=== PATIENT | male | born 1975 | race Caucasian/White ===

== ENCOUNTER 2017-07-30 20:53 | Emergency (ER) | payer MEDICAID, SELFPAY ==
[2017-07-30 20:54] VITALS: BP 126/85; PULSE 85; RESP 16; TEMP 36.9; O2SAT 97; BMI 27.3
[2017-07-30 21:14] VITALS: BP 131/88; PULSE 76; RESP 15; O2SAT 97
--- NOTE | 2017-07-30 21:31 | EKG12_ITS ---
Test Reason : POST OP CP Blood Pressure : / mmHG Vent. Rate : 080 BPM Atrial Rate : 080 BPM P-R Int : 158 ms QRS Dur : 150 ms QT Int : 432 ms P-R-T Axes : 047 -01 134 degrees QTc Int : 498 ms Normal sinus rhythm Left bundle branch block Abnormal ECG Confirmed by BRODERICK GONZALES, SHANON ([id number]), medical transcription editor BETTE BRYANT ([id number]) on 08/01/2017 2:06:41 PM Referred By: GISELLA Confirmed By:SHANON VILLAFANA MD
[2017-07-30 21:43] LABS: Absolute Lymphocyte Count 2.76 X10^3/ul (0.83-4.51); Absolute Neutrophil Count 3.3 X10^3/uL (2.0-7.7); Basophil# 0.05 X10^3/uL; Basophil% 0.7 % (0-1); Eosinophil# 0.43 X10^3/uL; Hematocrit 32.7 % (40-54); Hemoglobin 10.9 g/dl (13.0-16.5); Lymphocyte # 2.76 X10^3/ul (4.0); Lymphocyte % 38.7 % (19-41); Mean Corp Hgb Conc 33.3 g/gl (32-36); Mean Corpuscular Hgb 29.8 pg (27.0-32.0); Mean Corpuscular Volume 89.3 fL (80-94); Mean Platelet Vol. 9.5 fl (6.2-12.0); Monocyte# 0.58 X10^3/uL; Monocyte% 8.1 % (0-10); Neutrophil % 46.4 % (47-70); Platelet Count 571 K/mm3 (150-450); RBC Distribution Width SD 45.7 fl (35.1-43.9); Red Blood Count 3.66 M/mm3 (4.6-6.2); White Blood Count 7.1 K/mm3 (4.4-11.0)
[2017-07-30 21:44] LABS: POSITIVE COUNT NO; POSITIVE DIFFERENTIAL NO; POSITIVE MORPHOLOGY NO
--- NOTE | 2017-07-30 21:45 | RAD_ITS ---
STUDY: X-RAY CHEST REASON FOR EXAM: Male, 41 years old. Left chest pain and dyspnea. TECHNIQUE: PA and lateral views of the chest. COMPARISON: 12/10/2016. FINDINGS: There is mild stranding in the left lower lobe. There is small left pleural effusion new since previous examination. Sternal cerclage wires are present from a prior sternotomy new since the previous exam. Normal mediastinum and alphonse. Normal visualized pulmonary arteries. Normal visualized aortic arch and descending thoracic aorta. The bony structures are unchanged. There is no demonstrated abnormality of the visualized soft tissue structures of the upper abdomen. RAD/Chest PA and Lateral IMPRESSION: Mild left basilar infiltrate/atelectasis and small left pleural effusion. Status post median sternotomy. Electronically Signed: Baldomero Velez MD at 22:08 EST Tel , Service support ,
[2017-07-30 21:48] LABS: Anion Gap 10 (5-15); BUN 15 mg/dL (7-18); BUN/Creat Ratio 18.8 RATIO (10-20); Calcium,Total 8.5 mg/dL (8.5-10.1); Chloride 105 mmol/L (98-107); EST Glomerular Filtration Rate 113 mL/min (>60); Est Glom Filt Rate - Afr Amer 137 mL/min (>60); Estimated Creatinine Clearance 85.94 ml/min; Glucose 152 mg/dL (74-106); Potassium 3.4 mmol/L (3.5-5.1); Sodium Level 138 mmol/L (136-145)
[2017-07-30 21:56] LABS: D-Dimer Quantitative (DVT/PE) 3.64 FEU/ug/m (0.27-0.49)
--- NOTE | 2017-07-30 21:59 | ED.RN ---
notified MD of d-dimer 3.64
[2017-07-30 22:00] VITALS: BP 122/85; PULSE 76; O2SAT 97
--- NOTE | 2017-07-30 22:40 | CT_ITS ---
STUDY: CTA CHEST REASON FOR EXAM: Male, 41 years old. Hypoxia. RADIATION DOSAGE (If Supplied By Facility): CTDIvol = ( 10.82 ) mGy, DLP = ( 428.30 ) mGycm TECHNIQUE: The examination was performed with the intravenous administration of 75 ml of Isovue 370 contrast material. Post-processing of the angiographic images was performed, with multiplanar reformation. Individualized dose optimization techniques were used for this CT. COMPARISON: None. FINDINGS: Normal enhancement of the main pulmonary artery and right and left pulmonary arteries. There is limited enhancement of the bilateral peripheral pulmonary arteries. There are questionable filling defects left lower lobe branches probably due to artifacts. They are not definitely confirmed on the sagittal or coronal images. Normal thoracic aorta and visualized great vessels. There is no demonstrated aortic dissection. The heart is mildly enlarged. There is no evidence of pericardial effusion. There is a soft tissue density in the anterior mediastinum in the lower chest likely representing postoperative changes. Normal hilar regions. Normal visualized trachea and bronchi. The lungs are well expanded. Is an infiltrate/atelectasis in the left lower lobe. There is moderate bilateral pleural effusions larger on the left side. There are mediastinal wires. Normal osseous structures. Normal visualized upper abdomen. CT/CTA Chest W/WO Contrast IMPRESSION: No evidence of central pulmonary embolism. Suboptimal evaluation of the peripheral branches due to artifacts. Left lower lobe infiltrate/atelectasis. Moderate bilateral pleural effusions larger on the left side. Anterior mediastinal density likely representing postoperative changes. Status post mediastinotomy. Electronically Signed: Baldomero Velez MD at 0:05 EST Tel , Service support ,
[2017-07-30 23:00] VITALS: BP 118/76; PULSE 78; RESP 16; O2SAT 98
[2017-07-31] VITALS: BP 120/79; PULSE 75; RESP 18; O2SAT 98
--- NOTE | 2017-07-31 00:51 | ED.VISSUMM ---
- ER Visit Summary Date of Service: 07/31/17 Chief Complaint: Left-sided chest pain that is sharp in nature History of Present Illness: The patient is a 41 M who has history of hypertrophic cardiopathy status post septal myomectomy on July 18 presents because of sharp left-sided chest pain. He also complains of medial left arm pain where he had vascular work. He denies any leg pain, swelling or discoloration. He denies any fever, chills or night sweats. Denies weight gain or weight loss. He denies any visual, ocular or auditory symptoms. He does report her shortness of breath. He denies dyspnea on exertion, orthopnea or PND. He denies any abdominal pain, nausea, vomiting diarrhea. He denies dysuria, frequency, urgency hematuria. He denies myalgias arthralgias or neck pain. He denies any rash or lesions. He denies headache, weakness or paresthesia. He is on no anticoagulant and gives no history of bruising easily or problems with bleeding. Physical Examination: Vital signs are marked for an elevated blood pressure 131/88. Head is atraumatic normocephalic. Pupils are equal round reactive. Extraocular muscles are intact. TMs are pearly white with landmarks noted. Nares patent with no drainage. Posterior pharynx without erythema or exudate. Uvula is midline. There is no dysphonia or dysphasia. Trachea is midline. There is no stridor with auscultation of the neck. He has a well-healed median sternotomy scar. There are bruises noted over the anterior left chest and medial left arm. Heart is regular without murmur, gallop or rub. Lungs are clear to auscultation. Abdomen soft nontender. Insert lower extremity DVT Test Results: Chest x-ray was obtained and reveals no acute pathology. EKG reveals a sinus rhythm rate of 80 and normal CBC is remarkable mild anemia with an H&H of 10.9 and 32.7. BMP is marked for glucose of 152. D-dimer is 3.64. CTA of the chest reveals no evidence of pulmonary mass or dissection. Bilateral pleural effusions left greater than right and atelectasis. Emergency Department Course and Treatment: I await his chest pain since he is postop a EKG, chest x-ray and appropriate blood work was obtained. Differential includes pneumonia, pulmonary embolus, postoperative chest pain. Treatment Plan: Since there is no evidence of PE or pneumonia will treat with pain medicine. He informed me that he has oxycodone tablets at home. Disposition: Charge to home with home-going medicine since pharmacies are closed at this hour. Impression: 1. Sharp left chest pain status post cardiac surgery 2. Septal myomectomy 3. History of hypertension 4. History of elevated triglycerides 5. History of glycogen storage disease This note was generated with [employer] dictation software. It may contain incorrect words, spelling, and punctuation that were not noted in review of the chart prior to signing ED Disposition - Plan for ED Patient: Disposition: Home or Assisted Living Chief Complaint: Chest Pain Instructions: ED Post Op Pain Referrals: Ankur Maldonado MD [Primary Care Provider] -
[2017-07-31 01:16] VITALS: BP 122/85; PULSE 77; RESP 22; O2SAT 98
--- NOTE | 2017-07-31 01:16 | ED.RN ---
IV DC'ED, CATHETER INTACT, SMALL GAUZE DRESSING PLACED. DISCHARGE INSTRUCTIONS GIVEN TO AND REVIEWED WITH PATIENT, PATIENT DENIES QUESTIONS OR CONCERNS AND VOICES UNDERSTANDING OF DISCHARGE INSTRUCTIONS. PT AMBULATES OUT OF ROOM WITHOUT DIFFICULTY.
== END 2017-07-31 01:17 | disposition home or self-care (01) ==
PROVIDERS: Emergency Provider Emergency Medicine; Family Provider Family Medicine; PCP Family Medicine
DX: R07.9 Chest pain, unspecified (principal); I10 Essential (primary) hypertension; E78.2 Mixed hyperlipidemia; E74.00 Glycogen storage disease, unspecified; E66.9 Obesity, unspecified; Z79.82 Long term (current) use of aspirin; Z79.899 Other long term (current) drug therapy; Z98.890 Other specified postprocedural states
CPT/HCPCS: 71046; 71275; 80048; 85025; 85379; 93005; 96361; 96374; 99284; J7040; Q9967; A4216

== ENCOUNTER → 2017-09-10 11:49 | Outpatient (CLI) | payer MEDICAID, SELFPAY ==
[2017-09-10 12:13] LABS: D-Dimer Quantitative (DVT/PE) 0.28 FEU/ug/m (0.27-0.49)
== END ==
PROVIDERS: Family Provider Family Medicine; PCP Family Medicine; Visit Provider Family Medicine
DX: R06.02 Shortness of breath (principal); R07.9 Chest pain, unspecified
CPT/HCPCS: 85379

== ENCOUNTER 2017-11-29 11:27 | Emergency (ER) | payer MEDICAID, SELFPAY ==
[2017-11-29 11:27] VITALS: BP 141/92; PULSE 74; RESP 16; TEMP 36.2; O2SAT 98; BMI 29.9
--- NOTE | 2017-11-29 11:50 | ED.VISSUMM ---
- ER Visit Summary Date of Service: 11/29/17 Chief Complaint: Back pain History of Present Illness: The patient is a 41 M presents with back pain that started this morning. It is right-sided thoracic region. Unknown if he lifted anything heavy. He has been walking a lot. No chest pain or shortness of breath with this. 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 Physical Examination: Otherwise unremarkable exam heart and lungs are clear abdomen is soft and nontender. He has point tenderness and muscle spasm over the right medial trapezius region. It is quite reproducible and mechanical. Emergency Department Course and Treatment: Trigger point injection with total of 5 mL of 1% lidocaine was injected. Patient is now asymptomatic and feels much better. He will be discharged with muscle relaxants for home Disposition: Discharge stable condition Impression: Thoracic strain This note was generated with [employer] dictation software. It may contain incorrect words, spelling, and punctuation that were not noted in review of the chart prior to signing ED Disposition - Plan for ED Patient: Disposition: Home or Assisted Living Chief Complaint: Back Instructions: ED Spasm Back No Trauma Prescriptions: Cyclobenzaprine [Flexeril] 10 mg PO TID PRN #20 tab PRN Reason: Muscle Spasm Referrals: Ankur Maldonado MD [Primary Care Provider] -
== END 2017-11-29 12:07 | disposition home or self-care (01) ==
PROVIDERS: Emergency Provider Emergency Medicine; Family Provider Family Medicine; PCP Family Medicine
DX: S29.012A Strain of muscle and tendon of back wall of thorax, initial encounter (principal); M62.830 Muscle spasm of back; X58.XXXA Exposure to other specified factors, initial encounter; Y93.9 Activity, unspecified; Y92.9 Unspecified place or not applicable; Y99.9 Unspecified external cause status; E74.00 Glycogen storage disease, unspecified; Z79.82 Long term (current) use of aspirin; Z79.899 Other long term (current) drug therapy; Z98.890 Other specified postprocedural states
CPT/HCPCS: 20552; 99282

== ENCOUNTER 2018-03-30 21:30 | Emergency (ER) | payer MEDICAID, SELFPAY ==
[2018-03-30 21:30] VITALS: BP 163/110; PULSE 93; RESP 20; TEMP 36.2; O2SAT 91; BMI 30.2
--- NOTE | 2018-03-30 21:49 | EKG12_ITS ---
Test Reason : CP Blood Pressure : / mmHG Vent. Rate : 090 BPM Atrial Rate : 090 BPM P-R Int : 172 ms QRS Dur : 150 ms QT Int : 422 ms P-R-T Axes : 056 -13 128 degrees QTc Int : 516 ms Normal sinus rhythm Biatrial enlargement Left bundle branch block Abnormal ECG Confirmed by DEDRA GONZALES, AMI ([id number]), publishing editor BETTE BRYANT ([id number]) on 04/02/2018 10:10:34 AM Referred By: THIERRY Confirmed By:AMI COLMENARES MD
--- NOTE | 2018-03-30 21:50 | RAD_ITS ---
STUDY: X-RAY CHEST REASON FOR EXAM: Male, 42 years old. Chest pain TECHNIQUE: Single AP portable view of the chest. COMPARISON: 07/30/2017 FINDINGS: Multiple median sternotomy wires are noted consistent for cardiac surgery. The lungs are clear and expanded. There is no demonstrated pleural abnormality. Normal size heart. Normal mediastinum and alphonse. Normal visualized pulmonary arteries. Normal visualized aortic arch and descending thoracic aorta. Normal visualized thoracic spine. Normal visualized ribs, clavicles, and shoulders. There is no demonstrated abnormality of the visualized soft tissue structures of the upper abdomen. RAD/Chest 1 View (Portable) IMPRESSION: Normal x-ray examination of the chest. Electronically Signed: Rigoberto Aquino MD at 22:06 EDT , Service support ,
[2018-03-30] MEDS: 0.9% Normal Saline 1,000 ML 150 ML IV (21:58)
[2018-03-30] MEDS: Morphine 2 MG/ML Syringe IV (21:58)
[2018-03-30 22:03] LABS: Absolute Lymphocyte Count 1.39 X10^3/ul (0.83-4.51); Absolute Neutrophil Count 3.6 X10^3/uL (2.0-7.7); Basophil# 0.02 X10^3/uL; Basophil% 0.3 % (0-1); Eosinophil# 0.23 X10^3/uL; Eosinophils% 3.8 % (0-5); Hematocrit 42.3 % (40-54); Hemoglobin 14.4 g/dl (13.0-16.5); Lymphocyte # 1.39 X10^3/ul (4.0); Lymphocyte % 23.1 % (19-41); Mean Corpuscular Hgb 28.9 pg (27.0-32.0); Mean Corpuscular Volume 84.8 fL (80-94); Mean Platelet Vol. 10.5 fl (6.2-12.0); Monocyte# 0.77 X10^3/uL; Monocyte% 12.8 % (0-10); Neutrophil # 3.61 X10^3/uL (2.7-7.7); Platelet Count 237 K/mm3 (150-450); RBC Distribution Width CV 13.4 % (11.6-14.6); RBC Distribution Width SD 41.1 fl (35.1-43.9); Red Blood Count 4.99 M/mm3 (4.6-6.2)
[2018-03-30 22:04] LABS: POSITIVE COUNT NO; POSITIVE DIFFERENTIAL NO; POSITIVE MORPHOLOGY NO
[2018-03-30 22:08] LABS: D-Dimer Quantitative (DVT/PE) 0.37 FEU/ug/m (0.27-0.49)
[2018-03-30 22:25] LABS: Anion Gap 8 (5-15); BUN 11 mg/dL (7-18); BUN/Creat Ratio 16.2 RATIO (10-20); Calcium,Total 8.5 mg/dL (8.5-10.1); Chloride 107 mmol/L (98-107); Creatinine, Serum 0.68 mg/dL (0.70-1.30); EST Glomerular Filtration Rate 136 mL/min (>60); Est Glom Filt Rate - Afr Amer 164 mL/min (>60); Estimated Creatinine Clearance 100.08 ml/min; Glucose 166 mg/dL (74-106); Potassium 3.9 mmol/L (3.5-5.1); Sodium Level 137 mmol/L (136-145)
--- NOTE | 2018-03-30 22:53 | ED.VISSUMM ---
- ER Visit Summary Date of Service: 03/30/18 Chief Complaint: Chest pain History of Present Illness: The patient is a 42 M with a 1-2-week history of intermittent sharp chest pain in the left upper chest. He does report getting intermittent short of breath and sometimes gets sweaty. He reports URI symptoms for the past several days as well. He has had cough with clear sputum. He has not noted a fever at home. Patient has a history of glycogen storage disease, hypertrophic cardiomyopathy. He underwent septal myomectomy in July of this year. Physical Examination: Blood pressure on arrival is 163/110, temperature 90 heart rate 93, respiratory rate 20, pulse ox 91% on room air. Patient sitting upright in bed. He appears ill but not toxic. Head neck examination is grossly unremarkable. Heart is regular rate and rhythm. Lung sounds mildly diminished throughout. He has focal tenderness in the left upper chest wall. No crepitus. No overlying skin changes. Abdomen is soft nontender. Lower extreme examination reveals no calf tenderness or edema. Test Results: EKG is sinus at 90 with a left bundle branch block. This is grossly unchanged compared to his prior. Portable chest x-ray is normal. CBC is normal. Chemistry studies significant only for glucose of 166. Troponin and d-dimer are both normal. Emergency Department Course and Treatment: Patient was given a small dose of morphine along with Zofran. On repeat evaluation he is resting comfortably. His blood pressure is 139/94 with a heart rate of 80. His respiratory rate is 17 and his pulse ox is 95% on room air. Patient will be treated with anti-inflammatories and prednisone to treat presumed pleurisy. Patient will also be given Zithromax for his upper respiratory symptoms in light of his prior cardiac surgery and cough. Treatment Plan: [] Disposition: Discharge Impression: 1. Pleuritic chest pain 2. Bronchitis This note was generated with [employer] dictation software. It may contain incorrect words, spelling, and punctuation that were not noted in review of the chart prior to signing ED Disposition - Plan for ED Patient: Chief Complaint: Chest Pain Referrals: Ankur Maldonado MD [Primary Care Provider] -
--- NOTE | 2018-03-30 22:56 | ED.DCSUM_ITS ---
- ER Visit Summary Date of Service: 03/30/18 Chief Complaint: Chest pain History of Present Illness: The patient is a 42 M with a 1-2-week history of intermittent sharp chest pain in the left upper chest. He does report getting intermittent short of breath and sometimes gets sweaty. He reports URI symptoms for the past several days as well. He has had cough with clear sputum. He has not noted a fever at home. Patient has a history of glycogen storage disease, hypertrophic cardiomyopathy. He underwent septal myomectomy in July of this year. Physical Examination: Blood pressure on arrival is 163/110, temperature 90 heart rate 93, respiratory rate 20, pulse ox 91% on room air. Patient sitting upright in bed. He appears ill but not toxic. Head neck examination is grossly unremarkable. Heart is regular rate and rhythm. Lung sounds mildly diminished throughout. He has focal tenderness in the left upper chest wall. No crepitus. No overlying skin changes. Abdomen is soft nontender. Lower extreme examination reveals no calf tenderness or edema. Test Results: EKG is sinus at 90 with a left bundle branch block. This is grossly unchanged compared to his prior. Portable chest x-ray is normal. CBC is normal. Chemistry studies significant only for glucose of 166. Troponin and d-dimer are both normal. Emergency Department Course and Treatment: Patient was given a small dose of morphine along with Zofran. On repeat evaluation he is resting comfortably. His blood pressure is 139/94 with a heart rate of 80. His respiratory rate is 17 and his pulse ox is 95% on room air. Patient will be treated with anti- inflammatories and prednisone to treat presumed pleurisy. Patient will also be given Zithromax for his upper respiratory symptoms in light of his prior cardiac surgery and cough. Treatment Plan: [] Disposition: Discharge Impression: 1. Pleuritic chest pain 2. Bronchitis This note was generated with [employer] dictation software. It may contain incorrect words, spelling, and punctuation that were not noted in review of the chart prior to signing ED Disposition - Plan for ED Patient: Chief Complaint: Chest Pain Referrals: Ankur Maldonado MD [Primary Care Provider] -
--- NOTE | 2018-03-30 22:56 | ED.DEP ---
ED Disposition - Plan for ED Patient: Disposition: Home or Assisted Living Chief Complaint: Chest Pain Instructions: ED Chest Pain Pleurisy, Acute Bronchitis Prescriptions: Azithromycin [Zithromax] 250 mg PO DAILY #4 tablet Ibuprofen [Ibu] 600 mg PO Q8 #15 tablet Prednisone [Deltasone] 40 mg PO DAILY #10 tablet Referrals: Ankur Maldonado MD [Primary Care Provider] - Kofi Parnell MD [STAFF PHYSICIAN] - As soon as possible
[2018-03-30] MEDS: Azithromycin 250 MG Tablet 500 MG PO (22:57)
[2018-03-30] MEDS: predniSONE 20 MG Tablet 40 MG PO (22:58)
[2018-03-30 23:02] VITALS: BP 159/97; PULSE 81; RESP 21; O2SAT 96
== END 2018-03-30 23:09 | disposition home or self-care (01) ==
PROVIDERS: Emergency Provider Emergency Medicine; Family Provider Family Medicine; PCP Family Medicine
DX: R07.81 Pleurodynia (principal); J40 Bronchitis, not specified as acute or chronic; I44.7 Left bundle-branch block, unspecified; I42.2 Other hypertrophic cardiomyopathy; E74.00 Glycogen storage disease, unspecified; Z79.82 Long term (current) use of aspirin; Z79.52 Long term (current) use of systemic steroids; Z79.899 Other long term (current) drug therapy; Z87.891 Personal history of nicotine dependence
CPT/HCPCS: 71045; 80048; 84484; 85025; 85379; 93005; 96361; 96374; 99285; J7030; A4216

== ENCOUNTER 2018-05-16 18:26 | Emergency (ER) | payer MEDICAID, SELFPAY ==
[2018-05-16 18:26] VITALS: BP 126/89; PULSE 91; RESP 16; TEMP 36.6; O2SAT 97; BMI 30.2
--- NOTE | 2018-05-16 18:38 | ED.VISSUMM ---
- ER Visit Summary Date of Service: 05/16/18 Chief Complaint: [] Right scapular back pain for days history of glycogen storage disease, history of cardiac surgery to reduce the size of his cardiac septum History of Present Illness: The patient is a 42 M [] that history he indicates he has chronic muscle spasms and pain because of the glycogen-storage disease, July he had the above cardiac surgery he is not sure whereby who he has no cardiac symptoms his cardiac status has been stable he has no history of CAD [place] PE or DVT Basically reports he has had pain to the right parascapular area he was seen in his outpatient providers office by different physician who is not familiar with his condition, that physician prescribed baclofen for muscle spasm but would not prescribe anything for the pain, the patient reports she is normally prescribed by Dr. Byrne his primary care [place] small amounts as a rescue medicine as he cannot take nonsteroidals because these cause stomach ulcers Presenting to see if he can have just a few [place] tablets to get him over this exacerbation he does not wish to have any other further evaluation from the emergency department such as lab tests or EKG Physical Examination: [] 126/89 General, no distress resting comfortably HEENT is generally unremarkable The neck is supple no adenopathy Cardiovascular, regular rate and rhythm Lungs, clear bilateral Abdomen, soft nontender Extremities, no clubbing cyanosis or edema he has a vague pain over the right parascapular area is exacerbated with movement of the extremity neurovascular function to the right hand is normal Neurologic, awake alert answering questions appropriately moving all 4 extremities I had a long conversation with the patient I explained to him that his pain management must be obtained from his outpatient providers not the emergency department he understands that but indicates his normal primary care physician was unavailable, he feels that he needs a [place] tablet tonight to help him rest with the baclofen, at this time given this unique circumstance he finds himself in, he will be prescribed [place] No. 2 tablets to use 1 nightly and otherwise discuss further pain management options with his physicians Test Results: [] Emergency Department Course and Treatment: [] Treatment Plan: [] Disposition: [] Home stable, declined ED workup Impression: [] Right parascapular pain history of same related to muscle spasms This note was generated with [employer] dictation software. It may contain incorrect words, spelling, and punctuation that were not noted in review of the chart prior to signing ED Disposition - Plan for ED Patient: Chief Complaint: Back Referrals: Ankur Maldonado MD [Primary Care Provider] -
--- NOTE | 2018-05-16 18:41 | ED.DCSUM_ITS ---
- ER Visit Summary Date of Service: 05/16/18 Chief Complaint: [] Right scapular back pain for days history of glycogen storage disease, history of cardiac surgery to reduce the size of his cardiac septum History of Present Illness: The patient is a 42 M [] that history he indicates he has chronic muscle spasms and pain because of the glycogen-storage disease, July he had the above cardiac surgery he is not sure whereby who he has no cardiac symptoms his cardiac status has been stable he has no history of CAD [place] PE or DVT Basically reports he has had pain to the right parascapular area he was seen in his outpatient providers office by different physician who is not familiar with his condition, that physician prescribed baclofen for muscle spasm but would not prescribe anything for the pain, the patient reports she is normally prescribed by Dr. Byrne his primary care [place] small amounts as a rescue medicine as he cannot take nonsteroidals because these cause stomach ulcers Presenting to see if he can have just a few [place] tablets to get him over this exacerbation he does not wish to have any other further evaluation from the emergency department such as lab tests or EKG Physical Examination: [] 126/89 General, no distress resting comfortably HEENT is generally unremarkable The neck is supple no adenopathy Cardiovascular, regular rate and rhythm Lungs, clear bilateral Abdomen, soft nontender Extremities, no clubbing cyanosis or edema he has a vague pain over the right parascapular area is exacerbated with movement of the extremity neurovascular function to the right hand is normal Neurologic, awake alert answering questions appropriately moving all 4 extr emities I had a long conversation with the patient I explained to him that his pain management must be obtained from his outpatient providers not the emergency department he understands that but indicates his normal primary care physician was unavailable, he feels that he needs a [place] tablet tonight to help him rest with the baclofen, at this time given this unique circumstance he finds himself in, he will be prescribed [place] No. 2 tablets to use 1 nightly and otherwise discuss further pain management options with his physicians Test Results: [] Emergency Department Course and Treatment: [] Treatment Plan: [] Disposition: [] Home stable, declined ED workup Impression: [] Right parascapular pain history of same related to muscle spasms This note was generated with [employer] dictation software. It may contain incorrect words, spelling, and punctuation that were not noted in review of the chart prior to signing ED Disposition - Plan for ED Patient: Chief Complaint: Back Referrals: Ankur Maldonado MD [Primary Care Provider] -
--- NOTE | 2018-05-16 18:41 | ED.DEP ---
ED Disposition - Plan for ED Patient: Chief Complaint: Back Instructions: ED Spasm Back No Trauma Prescriptions: Hydrocodone Bitart/Apap 5-325 [[place] 5MG-325MG] 1 tab PO Q4H PRN PRN 2 Days #2 tab PRN Reason: Pain Referrals: Ankur Maldonado MD [Primary Care Provider] -
[2018-05-16 19:08] VITALS: BP 146/106; PULSE 80; RESP 20; O2SAT 98
== END 2018-05-16 19:08 | disposition home or self-care (01) ==
LOC: ED 18:49
PROVIDERS: Emergency Provider Emergency Medicine; Family Provider Family Medicine; PCP Family Medicine
DX: M62.830 Muscle spasm of back (principal); M54.9 Dorsalgia, unspecified; E74.00 Glycogen storage disease, unspecified; Z79.82 Long term (current) use of aspirin; Z79.899 Other long term (current) drug therapy
CPT/HCPCS: 99282

== ENCOUNTER → 2018-06-26 10:07 | Outpatient (CLI) | payer MEDICAID, SELFPAY ==
[2018-06-26 09:02] VITALS: BMI 31.0
== END ==
PROVIDERS: Family Provider Family Medicine; PCP Family Medicine; Referring Provider Family Medicine; Visit Provider Internal Medicine Cardiovascular Disease
DX: R00.2 Palpitations (principal); E87.1 Hypo-osmolality and hyponatremia
CPT/HCPCS: 36415; 80061; 80076; 93225; 93226

== ENCOUNTER → 2018-06-26 10:38 | Outpatient (CLI) | payer MEDICAID, SELFPAY ==
[2018-06-26 09:02] VITALS: BMI 31.0
[2018-06-26 11:48] LABS: AST(SGOT) 49 U/L (15-37); Alanine Aminotransfer ALT/SGPT 69 U/L (16-61); Albumin, Serum 4.1 g/dL (3.2-5.0); Alkaline Phosphatase 64 U/L (45-117); Bilirubin, Direct 0.06 mg/dL (0.00-0.30); Cholesterol 181 mg/dL (200); Globulin 3.7 g/dL (2.2-4.2); High Density Lipoprotein 25 mg/dL; Protein, Total 7.8 g/dL (6.4-8.2); Triglycerides 650 mg/dL
== END ==
PROVIDERS: Family Provider Nurse Practitioner Primary Care; PCP Nurse Practitioner Primary Care; Referring Provider Internal Medicine Cardiovascular Disease; Visit Provider Internal Medicine Cardiovascular Disease
DX: E78.1 Pure hyperglyceridemia (principal)
CPT/HCPCS: 36415; 80061; 80076

== ENCOUNTER → 2018-07-01 14:28 | Outpatient (CLI) | payer MEDICAID, SELFPAY ==
[2018-06-26 09:02] VITALS: BMI 31.0
--- NOTE | 2018-07-01 14:30 | ECHOCS_ITS ---
Reason For Study: Arrhythmia Procedure This was a 2D Doppler, Color Flow transthoracic echocardiogram. Exam performed in department. Left Ventricle Sigmoid septum. Normal LV size. Moderate eccentric left ventricular hypertrophy. Left ventricular systolic function is normal. The estimated ejection fraction is 55 %. No regional wall motion abnormalities noted. Right Ventricle Normal RV size. Normal systolic function. Atria Normal left atrium. Normal right atrium. Mitral Valve Bileaflet diffuse mitral valve thickening. Mild (1+) eccentric mitral valve insufficiency. An annuloplasty ring is noted in the mitral position. Tricuspid Valve Normal tricuspid valve. Mild (1+) tricuspid valve insufficiency. Pulmonary artery systolic pressure is 38 mmHg. Aortic Valve Trisinus/trileaflet aortic valve. Pulmonic Valve Normal pulmonic valve. Great Vessels Normal aortic root. The pulmonary artery is normal size. Normal inferior vena cava. Pericardium/Pleural No pericardial effusion. Medication 22 gauge I.V. with prn adaptor inserted into right arm. Diluted definity 4ml given slow IV push to enhance endocardial definition. MMode/2D Measurements & Calculations LVIDd: 3.9 cm IVSd: 1.8 cm LA dimension: 4.2 cm LVIDs: 3.0 cm LVPWd: 1.4 cm RVDd: 3.6 cm FS: 24.6 % LAV(MOD-bp): 53.9 ml LA A4 area: 18.7 cm2 RA A4 area: 16.6 cm2 LAV(MOD-bp) Indexed: 31.8 ml/m2 LAV(MOD-sp2): 51.1 ml LAV(MOD-sp4): 55.9 ml Time Measurements MV dec time: 0.33 sec Doppler Measurements & Calculations MV E max axel: 61.1 cm/sec Lat Peak E' Axel: 7.7 cm/sec Med Peak E' Axel: 3.9 cm/sec MV A max axel: 81.9 cm/sec E/E' lat: 8.0 E/E' med: 15.8 MV E/A: 0.75 MV V2 max: 117.8 cm/sec MV P1/2t max axel: 103.5 cm/sec Ao V2 max: 136.8 cm/sec MV max P.5 mmHg MV P1/2t: 58.0 msec Ao max P.5 mmHg MV V2 mean: 67.4 cm/sec MV dec slope: 523.1 cm/sec2 Ao V2 mean: 91.8 cm/sec MV mean P.2 mmHg Ao mean P.8 mmHg MV V2 VTI: 22.0 cm MVA(P1/2t): 3.8 cm2 Ao V2 VTI: 19.8 cm LV V1 max: 132.9 cm/sec MR max axel: 504.2 cm/sec PA V2 max: 144.5 cm/sec LV V1 max P.1 mmHg MR max P.7 mmHg LV V1 mean P.2 mmHg LV V1 mean: 79.0 cm/sec LV V1 VTI: 20.3 cm TR max axel: 294.6 cm/sec TR max P.7 mmHg Interpretation Summary Normal LV size. Moderate eccentric left ventricular hypertrophy. Left ventricular systolic function is normal. The estimated ejection fraction is 55 %. Bileaflet diffuse mitral valve thickening. Mild (1+) eccentric mitral valve insufficiency. Pulmonary artery systolic pressure is 38 mmHg. Ordering Physician: Kyle Villarreal Referring Physician: Kyle Villarreal Performed By: Aung Blanco, JORGE LUIS
== END ==
PROVIDERS: Family Provider Nurse Practitioner Primary Care; PCP Nurse Practitioner Primary Care; Referring Provider Internal Medicine Cardiovascular Disease; Visit Provider Internal Medicine Cardiovascular Disease
DX: R00.2 Palpitations (principal)
CPT/HCPCS: 93306; Q9957; A4216; C8929

== ENCOUNTER → 2018-07-15 09:28 | Outpatient (CLI) | payer BC, SELFPAY ==
[2018-06-26 09:02] VITALS: BMI 31.0
[2018-07-15 10:14] LABS: Hematocrit 43.7 % (40-54); Hemoglobin 14.9 g/dl (13.0-16.5); Mean Corp Hgb Conc 34.1 g/gl (32-36); Mean Corpuscular Hgb 29.2 pg (27.0-32.0); Mean Corpuscular Volume 85.5 fL (80-94); Mean Platelet Vol. 10.7 fl (6.2-12.0); Platelet Count 240 K/mm3 (150-450); RBC Distribution Width CV 13.1 % (11.6-14.6); RBC Distribution Width SD 41.1 fl (35.1-43.9); Red Blood Count 5.11 M/mm3 (4.6-6.2); White Blood Count 6.3 K/mm3 (4.4-11.0)
[2018-07-15 10:17] LABS: Scan Indicated on CBC? Y/N NO
[2018-07-15 11:00] LABS: Anion Gap 13 (5-15); BUN 17 mg/dL (7-18); BUN/Creat Ratio 24.1 RATIO (10-20); Calcium,Total 8.8 mg/dL (8.5-10.1); Chloride 105 mmol/L (98-107); Creatinine, Serum 0.71 mg/dL (0.70-1.30); EST Glomerular Filtration Rate 130 mL/min (>60); Est Glom Filt Rate - Afr Amer 157 mL/min (>60); Glucose 87 mg/dL (74-106); Potassium 3.7 mmol/L (3.5-5.1); Sodium Level 140 mmol/L (136-145)
== END ==
PROVIDERS: Family Provider Nurse Practitioner Primary Care; PCP Nurse Practitioner Primary Care; Referring Provider Internal Medicine Cardiovascular Disease; Visit Provider Internal Medicine Cardiovascular Disease
DX: R00.2 Palpitations (principal)
CPT/HCPCS: 36415; 80048; 85027

== ENCOUNTER 2018-07-22 07:02 | Day surgery (SDC) | payer BC, SELFPAY ==
[2018-06-26 09:02] VITALS: BMI 31.0
[2018-07-19 11:26] VITALS: BMI 31.0
--- NOTE | 2018-07-22 08:05 | CL.IE_ITS ---
Patient: SARAH MAE Study Date: 07/22/2018 Performing: Kyle Villarreal MD : 1975 Age: 42 Gender: male PROCEDURES PERFORMED AX24-JVADVASKG OF LOOP RECORDER INDICATIONS Syncope PROCEDURE DETAILS The patient was brought to the Catheterization Lab in the postabsorptive nonsedated state. Infor med consent was obtained prior to the procedure. Local anesthetic was given subcutaneously to the le ft upper chest area with Lidocaine 2%. Incision was made to the left upper chest. ICM Loop Recorder w as inserted. Steri-strips applied to Lt chest area. The patient tolerated the procedure well. Estimated Blood Loss: < 10 mls IMPLANTED / EX-PLANTED DEVICES IMPLANTED DEVICE(S): ICM Loop Recorder - Corporation Lawyer: [employer], Model # Reveal [id number] , Serial # [id number] DEVICE PARAMETERS CONCLUSIONS / RECOMMENDATIONS Device Conclusions: Successful implantation of a patient activated loop recorder. Device Recommendations: Follow up with Primary Care Physician PROCEDURE MEDICATIONS Versed 1 mg IV Oxygen: 2 L/min via nasal cannula Antibiotic given in appropriate timeframe. Ancef 2 Gm IV @ 07/22/2018 07:49:02 Signed By Kyle Villarreal MD On 07/22/2018 08:03:55 Kyle Villarreal MD
== END 2018-07-22 09:15 | disposition home or self-care (01) ==
LOC: CLSP 07:03
PROVIDERS: Family Provider Nurse Practitioner Primary Care; PCP Nurse Practitioner Primary Care; Referring Provider Internal Medicine Cardiovascular Disease; Visit Provider Internal Medicine Cardiovascular Disease
DX: I42.1 Obstructive hypertrophic cardiomyopathy (principal); R55 Syncope and collapse; I34.0 Nonrheumatic mitral (valve) insufficiency; I44.7 Left bundle-branch block, unspecified; R00.2 Palpitations; E78.1 Pure hyperglyceridemia; D64.9 Anemia, unspecified; E74.01 von Gierke disease; K86.1 Other chronic pancreatitis; E55.9 Vitamin D deficiency, unspecified; F12.20 Cannabis dependence, uncomplicated; Z79.82 Long term (current) use of aspirin; Z79.899 Other long term (current) drug therapy; Z87.891 Personal history of nicotine dependence; Z98.890 Other specified postprocedural states
CPT/HCPCS: 33285; 99152; J7040

== ENCOUNTER → 2018-10-21 10:16 | Outpatient (CLI) | payer BC, SELFPAY ==
[2018-07-19 11:26] VITALS: BMI 31.0
[2018-10-21 11:16] LABS: ALB/GLOB Ratio 1.1 RATIO (0.9-2.4); AST(SGOT) 32 U/L (15-37); Alanine Aminotransfer ALT/SGPT 41 U/L (16-61); Albumin, Serum 3.9 g/dL (3.2-5.0); Alkaline Phosphatase 51 U/L (45-117); Anion Gap 8 (5-15); BUN 19 mg/dL (7-18); Calcium,Total 8.5 mg/dL (8.5-10.1); Chloride 110 mmol/L (98-107); Cholesterol 171 mg/dL (200); Creatinine, Serum 0.83 mg/dL (0.70-1.30); EST Glomerular Filtration Rate 108 mL/min (>60); Est Glom Filt Rate - Afr Amer 131 mL/min (>60); Globulin 3.7 g/dL (2.2-4.2); Glucose 85 mg/dL (74-106); High Density Lipoprotein 19 mg/dL; Potassium 3.9 mmol/L (3.5-5.1); Protein, Total 7.6 g/dL (6.4-8.2); Sodium Level 143 mmol/L (136-145); Triglycerides 375 mg/dL; Very Low Density Lipoprotein 75 mg/dL (5-40)
== END ==
PROVIDERS: Family Provider Nurse Practitioner Primary Care; PCP Nurse Practitioner Primary Care; Referring Provider Internal Medicine Endocrinology, Diabetes & Metabolism; Visit Provider Internal Medicine Endocrinology, Diabetes & Metabolism
DX: E04.9 Nontoxic goiter, unspecified (principal); E78.2 Mixed hyperlipidemia
CPT/HCPCS: 36415; 80053; 80061

== ENCOUNTER 2018-12-27 19:21 | Emergency (ER) | payer BC, SELFPAY ==
[2018-12-26 16:23] VITALS: BMI 29.0
[2018-12-27 19:23] VITALS: BP 126/70; PULSE 93; RESP 15; TEMP 36.4; O2SAT 97; BMI 29.5
[2018-12-27] MEDS: MethylPREDNISolone 125 MG/2 ML Vial IV (20:06)
[2018-12-27] MEDS: DiphenhydrAMINE 50 MG/ML Syringe IV (20:06)
[2018-12-27] MEDS: 0.9% Normal Saline 1,000 ML 1000 ML IV (20:06)
--- NOTE | 2018-12-27 20:46 | ED.DCSUM_ITS ---
- ER Visit Summary Date of Service: 12/27/18 Chief Complaint: Stung by hornfuad History of Present Illness: The patient is a 43 M who sees . He reports that approximately 3 hours ago he had 10 to 12 stings by hornets. He reports that these were to the right side of his chest and his right shoulder. He has taken Benadryl with minimal relief. Reports that the area itches itches. He denies any chest pain or shortness of breath. He denies any angioedema. Physical Examination: Vitals: Stable. Afebrile. General: Well-nourished and well-developed. Head: Normocephalic atraumatic. HEENT: No angioedema of his lips, tongue, oropharynx. Neck: Supple, no lymphadenopathy. No JVD. Nontender. Cardiovascular: Regular rate and rhythm. No murmurs. Respiratory: No respiratory distress. Clear to auscultation bilaterally. Abdominal: Soft, nontender, nondistended, normal bowel sounds. No guarding, rebound, or peritoneal signs. Back: Nontender. Extremities: Nontender, no edema. Skin: Erythema and excoriation over the right upper chest and right shoulder. No urticarial lesions.. Neurologic: Alert and oriented ?3. Cranial nerves II through XII are intact. Normal strength and sensation. Psych: Normal affect. Emergency Department Course and Treatment: Patient was treated with Benadryl, Pepcid, and Solu-Medrol IV. Observed over the course of 2 hours and his symptoms have greatly improved. Treatment Plan: Patient will be discharged with Zyrtec, Pepcid, and prednisone. Instructed to follow-up with his primary care physician 1 to 2 days if not improving. Return to the emergency department for any worsening symptoms. Disposition: To home in improved and stable condition. Impression: 1. Localized allergic reaction to hornet stings. This note was generated with [employer] dictation software. It may contain incorrect words, spelling, and punctuation that were not noted in review of the chart prior to signing ED Disposition - Plan for ED Patient: Disposition: Home or Assisted Living Instructions: ALLERGIC REACTION, Insect (General) Prescriptions: Prednisone [Deltasone] 40 mg PO DAILY #10 tab Prescription Printed Famotidine [Pepcid] 20 mg PO BID #28 tab Prescription Printed Cetirizine HCl [Zyrtec] 10 mg PO DAILY #14 cap Prescription Printed Referrals: Travis Rocha, GARMENT FORM ASSEMBLER-C [Primary Care Provider] - 1-2 Days if not improving
[2018-12-27 20:52] VITALS: BP 118/73; PULSE 71; RESP 14
== END 2018-12-27 21:05 | disposition home or self-care (01) ==
LOC: ED 19:44
PROVIDERS: Emergency Provider Emergency Medicine; Family Provider Nurse Practitioner Primary Care; PCP Nurse Practitioner Primary Care
DX: T63.451A Toxic effect of venom of hornets, accidental (unintentional), initial encounter (principal); L29.9 Pruritus, unspecified; Y92.9 Unspecified place or not applicable; Z79.82 Long term (current) use of aspirin; Z79.899 Other long term (current) drug therapy
CPT/HCPCS: 96361; 96374; 96375; 99283; J7030; J3490

== ENCOUNTER 2019-02-22 00:57 | Emergency (ER) | payer BC, SELFPAY ==
[2019-02-22 00:58] VITALS: BP 125/79; PULSE 78; RESP 16; TEMP 36.7; O2SAT 98; BMI 29.0
--- NOTE | 2019-02-22 02:22 | ED.VIS.GEN ---
History of Present Illness Chief Complaint: Rash Narrative: Patient is a 43-year-old male who presents with rash and itching of the bilateral hands. He states he had a bad sunburn about a month ago which then blistered. He had itching and some open areas since that time. He was recently seen at an urgent care and prescribed oral antibiotics. His main complaint at this time is just ongoing itching. He does not have systemic symptoms such as fevers or vomiting. Past Medical History - Allergies and Home Meds Allergies/Adverse Reactions: Allergies nitroglycerin Adverse Reaction (Verified 02/22/19 01:02) Hypotension/feeling poor 'THROWS ME FOR A LOOP' UNABLE TO EXPLAIN FURTHER Primary Care Physician: Travis Rocha NP-C [Primary Care Provider] - Past Medical History: - - Athlete's heart Surgical History: - - Septoplasty Smoking Status: Former smoker - Family History Maternal Family History: Family History (Last Reviewed 12/26/18 @ 16:45 by Kyle Villarreal MD) Mother CAD (coronary artery disease) Father CAD (coronary artery disease) Kidney disease Sister Hypertension Glycogen storage disease Sister Hypertension Sister Hypertension Family History: Reports: No pertinent history Paternal Family History: Family History (Last Reviewed 12/26/18 @ 16:45 by Kyle Villarreal MD) Mother CAD (coronary artery disease) Father CAD (coronary artery disease) Kidney disease Sister Hypertension Glycogen storage disease Sister Hypertension Sister Hypertension Family History: Reports: No pertinent history Review of Systems All systems negative except as indicated General: Denies: Fever Cardiovascular: Denies: Chest pain Respiratory: Denies: Dyspnea Gastrointestinal: Denies: Vomiting Skin: Reports: Rash Physical Exam Vital Signs/Narrative: Vital Signs Temp Pulse Resp BP Pulse Ox 02/22/19 00:58 98.1 F 78 16 125/79 H 98 Inital Vital Signs reviewed: Yes General: Well nourished Head: Normocephalic, Atraumatic Eyes: EOMI ENT: Moist mucous membranes Neck: Supple Cardiovascular: Regular rate, Regular rhythm Respiratory: No distress Skin: - - Patient has excoriation of the back of both hands. I do not appreciate erythema streaking warmth to the touch this does not appear infected cellulitic Diagnostic/Tx/Re-eval - Medical Decision Making Patient was given Vistaril for itching here. He was prescribed apical hydrocortisone. He understands to return for new or worsening symptoms otherwise to follow-up as an outpatient. He was advised that if symptoms continue and do not improve he may need to see a digital measurement advisor. ED Disposition - Plan for ED Patient: Disposition: Home or Assisted Living Diagnosis: Rash Prescriptions: Hydrocortisone 2.5% Crm [Hytone] 1 applic TOPICAL BID PRN #1 tube Prescription Printed Referrals: Travis Rocha NP-C [Primary Care Provider] - Additional Instructions: You were seen for a rash on both hands with some scratched open areas. Use the cream as prescribed. Follow-up with your primary care physician.
[2019-02-22] MEDS: hydrOXYzine PAM 25 MG Capsule PO (02:43)
[2019-02-22 02:45] VITALS: RESP 16
== END 2019-02-22 02:45 | disposition home or self-care (01) ==
PROVIDERS: Emergency Provider Emergency Medicine; Family Provider Nurse Practitioner Primary Care; PCP Nurse Practitioner Primary Care
DX: R21 Rash and other nonspecific skin eruption (principal); L29.9 Pruritus, unspecified; Z79.82 Long term (current) use of aspirin; Z79.899 Other long term (current) drug therapy; Z87.891 Personal history of nicotine dependence
CPT/HCPCS: 99283

== ENCOUNTER → 2019-04-21 08:51 | Outpatient (CLI) | payer BC, SELFPAY ==
[2019-04-21 10:20] LABS: ALB/GLOB Ratio 1.1 RATIO (0.9-2.4); AST(SGOT) 24 U/L (15-37); Alanine Aminotransfer ALT/SGPT 30 U/L (16-61); Alkaline Phosphatase 46 U/L (45-117); Anion Gap 9 (5-15); BUN 19 mg/dL (7-18); BUN/Creat Ratio 22.3 RATIO (10-20); CPK Total, Creatine Kinase 174 U/L (39-308); Calcium,Total 8.4 mg/dL (8.5-10.1); Chloride 110 mmol/L (98-107); Cholesterol 237 mg/dL (200); Creatinine, Serum 0.85 mg/dL (0.70-1.30); EST Glomerular Filtration Rate 104 mL/min (>60); Est Glom Filt Rate - Afr Amer 126 mL/min (>60); Globulin 3.6 g/dL (2.2-4.2); Glucose 92 mg/dL (74-106); High Density Lipoprotein 7 mg/dL; Potassium 3.9 mmol/L (3.5-5.1); Protein, Total 7.6 g/dL (6.4-8.2); Sodium Level 141 mmol/L (136-145); Triglycerides 628 mg/dL
== END ==
LOC: LAB.FUTURE 08:53 → LAB 09:26
PROVIDERS: Family Provider Nurse Practitioner Primary Care; PCP Nurse Practitioner Primary Care; Referring Provider Internal Medicine Endocrinology, Diabetes & Metabolism; Visit Provider Internal Medicine Endocrinology, Diabetes & Metabolism
DX: E04.9 Nontoxic goiter, unspecified (principal); E78.2 Mixed hyperlipidemia
CPT/HCPCS: 36415; 80053; 80061; 82550

== ENCOUNTER → 2019-06-18 09:32 | Outpatient (CLI) | payer OTHER, SELFPAY ==
[2019-06-13 11:53] VITALS: BMI 28.5
[2019-06-18 11:11] LABS: ALB/GLOB Ratio 1.1 RATIO (0.9-2.4); AST(SGOT) 21 U/L (15-37); Alanine Aminotransfer ALT/SGPT 36 U/L (16-61); Albumin, Serum 4.1 g/dL (3.2-5.0); Alkaline Phosphatase 43 U/L (45-117); Anion Gap 9 (5-15); BUN 18 mg/dL (7-18); BUN/Creat Ratio 22.7 RATIO (10-20); Calcium,Total 8.7 mg/dL (8.5-10.1); Chloride 107 mmol/L (98-107); Cholesterol 181 mg/dL (200); Creatinine, Serum 0.79 mg/dL (0.70-1.30); EST Glomerular Filtration Rate 113 mL/min (>60); Est Glom Filt Rate - Afr Amer 137 mL/min (>60); Globulin 3.7 g/dL (2.2-4.2); Glucose 76 mg/dL (74-106); High Density Lipoprotein 19 mg/dL; Protein, Total 7.8 g/dL (6.4-8.2); Sodium Level 140 mmol/L (136-145); Triglycerides 449 mg/dL
== END ==
PROVIDERS: Family Provider Nurse Practitioner Primary Care; PCP Nurse Practitioner Primary Care; Referring Provider Internal Medicine Endocrinology, Diabetes & Metabolism; Visit Provider Internal Medicine Endocrinology, Diabetes & Metabolism
DX: E04.9 Nontoxic goiter, unspecified (principal); E78.2 Mixed hyperlipidemia
CPT/HCPCS: 36415; 80053; 80061

== ENCOUNTER → 2019-06-30 09:55 | Outpatient (CLI) | payer OTHER, SELFPAY ==
[2019-06-13 11:53] VITALS: BMI 28.5
--- NOTE | 2019-06-30 09:57 | ECHOCS_ITS ---
Reason For Study: CP Procedure This was a 2D Doppler, Color Flow transthoracic echocardiogram. The study was technically difficult. Contrast injection was performed. Exam performed in department. Left Ventricle Normal LV size. Left ventricular systolic function is lower limits of normal. The estimated ejection fraction is 50 %. Septal motion consistent with IVCD. Septal bounce. Infero-Basal: Mildly hypokinetic. Inferior Adkins : Mildly hypokinetic. Right Ventricle Normal RV size. Normal systolic function. Atria The left atrium is mildly enlarged. Normal right atrium. Mitral Valve Mild (1+) eccentric mitral valve insufficiency. Status post mitral valve repair. Tricuspid Valve Normal tricuspid valve. Aortic Valve The aortic valve is not well visualized. Pulmonic Valve The pulmonic valve is not well visualized. Great Vessels Normal aortic root. The pulmonary artery is normal size. Normal inferior vena cava. Pericardium/Pleural No pericardial effusion. Medication 22 gauge I.V. with prn adaptor inserted into right arm. Diluted definity 2ml given slow IV push to enhance endocardial definition. MMode/2D Measurements & Calculations LVIDd: 4.0 cm IVSd: 1.7 cm LA dimension: 4.1 cm LVIDs: 2.9 cm LVPWd: 1.3 cm RVDd: 3.5 cm FS: 27.8 % LAV(MOD-bp): 65.9 ml LA A4 area: 21.3 cm2 RA A4 area: 12.8 cm2 LAV(MOD-bp) Indexed: 40.5 ml/m2 LAV(MOD-sp2): 57.7 ml LAV(MOD-sp4): 66.9 ml Time Measurements MV dec time: 0.21 sec Doppler Measurements & Calculations MV E max axel: 91.7 cm/sec Lat Peak E' Axel: 6.4 cm/sec Med Peak E' Axel: 4.8 cm/sec MV A max axel: 77.0 cm/sec E/E' lat: 14.4 E/E' med: 18.9 MV E/A: 1.2 MV V2 max: 122.3 cm/sec MV P1/2t max axel: 121.3 cm/sec Ao V2 max: 116.3 cm/sec MV max P.0 mmHg MV P1/2t: 43.4 msec Ao max P.4 mmHg MV V2 mean: 70.1 cm/sec MV dec slope: 818.9 cm/sec2 MV mean P.3 mmHg MV V2 VTI: 22.2 cm MVA(P1/2t): 5.1 cm2 LV V1 max: 84.6 cm/sec MR max axel: 541.6 cm/sec PA V2 max: 127.1 cm/sec LV V1 max P.9 mmHg MR max P.3 mmHg MR mean axel: 384.5 cm/sec MR mean P.2 mmHg MR VTI: 182.9 cm Interpretation Summary Normal LV size. Left ventricular systolic function is lower limits of normal. The estimated ejection fraction is 50 %. Status post mitral valve repair. Mild (1+) eccentric mitral valve insufficiency. Ordering Physician: Kyle Villarreal Referring Physician: Kyle Villarreal MD Performed By: Aung Blanco RCS
== END ==
PROVIDERS: Family Provider Nurse Practitioner Primary Care; PCP Nurse Practitioner Primary Care; Referring Provider Internal Medicine Cardiovascular Disease; Visit Provider Internal Medicine Cardiovascular Disease
DX: R07.9 Chest pain, unspecified (principal); Z98.890 Other specified postprocedural states
CPT/HCPCS: 93306; Q9957; A4216; C8929

== ENCOUNTER → 2019-07-16 06:16 | Outpatient (CLI) | payer OTHER, SELFPAY ==
[2019-06-13 11:53] VITALS: BMI 28.5
--- NOTE | 2019-07-16 12:18 | STRESSREP ---
Stress Test Report Pharmacologic myocardial perfusion stress test. 43-year-old man with a history of abnormal echocardiogram. Medications aspirin, verapamil. Resting EKG demonstrates normal sinus rhythm with a rate of 72 bpm and left bundle branch block. Resting blood pressure is 120/84 mmHg. 0.4 mg of regadenoson was infused per usual protocol followed by Intravenous saline flush injection continuous alarm security or surveillance monitor was performed. The maximum heart rate attained was 104 bpm which was 58% of maximum predicted heart rate the maximum workload was 1 metabolic equivalent. Patient maintained sinus rhythm throughout the recording with a left bundle branch block. At rest and during peak infusion left bundle branch block changes only were noted the resting blood pressure was 120/84 with a final blood pressure 112/70 mmHg. Myocardial perfusion protocol. 11.6 mCi of technetium 99m sestamibi was injected at rest. 0.4 mg of regadenoson was infused per usual protocol peak infusion 33.9 mCi of technetium 99m sestamibi was injected stress images were obtained stress and rest images were reconstructed and compared in the short axis vertical long horizontal long axis. Gated images were also obtained Perfusion SPECT analysis: Review of the stress images demonstrate normal uptake of tracer noted in all areas of myocardium the resting images similar demonstrate normal uptake of tracer noted in all areas of myocardium. No reversibility is no suggest ischemia. Gated SPECT analysis: The gated ejection fraction is 54%. Conclusion: Normal pharmacologic myocardial perfusion stress test. Preserved preserved ejection fraction. Left bundle branch block pattern noted
== END ==
LOC: CVS 06:16
PROVIDERS: PCP Nurse Practitioner Primary Care; Referring Provider Internal Medicine Cardiovascular Disease; Visit Provider Internal Medicine Cardiovascular Disease
DX: R93.1 Abnormal findings on diagnostic imaging of heart and coronary circulation (principal); R93.89 Abnormal findings on diagnostic imaging of other specified body structures; R07.9 Chest pain, unspecified; R00.2 Palpitations; Z98.890 Other specified postprocedural states; I42.1 Obstructive hypertrophic cardiomyopathy; I34.0 Nonrheumatic mitral (valve) insufficiency; E78.1 Pure hyperglyceridemia; E74.01 von Gierke disease; I44.7 Left bundle-branch block, unspecified
CPT/HCPCS: 78452; 93017; A9500; A4216; J2785

== ENCOUNTER → 2019-10-06 09:23 | Outpatient (CLI) | payer OTHER, SELFPAY ==
[2019-06-13 11:53] VITALS: BMI 28.5
[2019-10-06 09:51] LABS: Hematocrit 40.5 % (40-54); Hemoglobin 13.3 g/dL (13.0-16.5); Mean Corp Hgb Conc 32.8 g/dL (32-36); Mean Corpuscular Hgb 29.2 pg (27.0-32.0); Mean Platelet Vol. 10.3 fl (6.2-12.0); Platelet Count 302 K/mm3 (150-450); RBC Distribution Width CV 13.7 % (11.6-14.6); RBC Distribution Width SD 45.1 fl (35.1-43.9); Red Blood Count 4.55 M/mm3 (4.6-6.2); White Blood Count 5.7 K/mm3 (4.4-11.0)
[2019-10-06 10:25] LABS: Vitamin D,25 Hydroxy 81.4 ng/mL
[2019-10-06 10:48] LABS: ALB/GLOB Ratio 1.1 RATIO (0.9-2.4); AST(SGOT) 28 U/L (15-37); Alanine Aminotransfer ALT/SGPT 30 U/L (16-61); Alkaline Phosphatase 49 U/L (45-117); Anion Gap 8 (5-15); BUN 17 mg/dL (7-18); BUN/Creat Ratio 21.9 RATIO (10-20); CPK Total, Creatine Kinase 310 U/L (39-308); Calcium,Total 8.7 mg/dL (8.5-10.1); Chloride 109 mmol/L (98-107); Cholesterol 264 mg/dL (200); Creatinine, Serum 0.78 mg/dL (0.70-1.30); EST Glomerular Filtration Rate 116 mL/min (>60); Est Glom Filt Rate - Afr Amer 140 mL/min (>60); Globulin 3.7 g/dL (2.2-4.2); Glucose 84 mg/dL (74-106); High Density Lipoprotein 7 mg/dL; Protein, Total 7.7 g/dL (6.4-8.2); Sodium Level 138 mmol/L (136-145); Triglycerides 731 mg/dL
== END ==
PROVIDERS: PCP Nurse Practitioner Primary Care; Referring Provider Nurse Practitioner Primary Care; Visit Provider Nurse Practitioner Primary Care
DX: E78.1 Pure hyperglyceridemia (principal); E55.9 Vitamin D deficiency, unspecified; E04.9 Nontoxic goiter, unspecified; E78.2 Mixed hyperlipidemia; R94.6 Abnormal results of thyroid function studies
CPT/HCPCS: 36415; 80053; 80061; 82306; 82550; 85027

== ENCOUNTER → 2020-08-05 14:23 | Outpatient (CLI) | payer OTHER, SELFPAY ==
[2020-08-05 13:38] VITALS: BMI 29.2
[2020-08-05 15:53] LABS: AST(SGOT) 28 U/L (15-37); Alanine Aminotransfer ALT/SGPT 48 U/L (16-61); Alkaline Phosphatase 48 U/L (45-117); Bilirubin, Direct 0.11 mg/dL (0.00-0.30); Cholesterol 230 mg/dL (200); High Density Lipoprotein 25 mg/dL; Triglycerides 902 mg/dL
== END ==
PROVIDERS: PCP Internal Medicine; Visit Provider Internal Medicine Cardiovascular Disease
DX: E78.1 Pure hyperglyceridemia (principal); E74.01 von Gierke disease
CPT/HCPCS: 36415; 80061; 80076

== ENCOUNTER 2021-09-15 09:30 | Outpatient (RCR) | payer MEDICAID, SELFPAY ==
--- NOTE | 2021-09-12 16:19 | HP.OTEVAL ---
Patient's Visit Information SARAH MAE is a 45 year old M, referred to Occupational Therapy by DOM LEWIS, with a diagnosis of B hand pain, hand mus weakness, intrinsic mus tightness, contract finger. Date of Evaluation: 09/12/21 Occupational Therapist: Vidya Costa - Subjective Pt. is a 45 y/o male with bilateral hand pain. Pt. reports both hands are bothering pt. and that the DrChana has ruled out carpal tunnel about 2 1/2 weeks ago. Pt. stating he has an appointment with Dr. Santiago (neurologist) October 14. Pt. also reported having an EMG. Results are not known. Pt. stating he really wants to start working out in the gym to gain his strength and endurance back so that he can return to his PLOF. This document was reviewed and signed by Vidya Costa OTR/L. - ADLs Dressing: Overhead shirt Comments: difficulty since July 2017 Kitchen: Lift gallon of milk, Pour from pitcher, Take dish out of oven Household: Vacuum, Laundry Yard: Mow lawn, Use shovel Miscellaneous: Use remote control, Use cell phone, Carry shopping bag, Pump gas Comments: Pt. stating his UB shoulder blades and down to hands ache/hurt with use during ADL's & IADL's. Pain affects sleep because he tenses up, and then wakes up about 6-7 times secondary to tension of muscles. Pt. is . He lives in a 1 story home. - ROM Shoulder: B WFL Elbow: B WFL Forearm: L 65* supination pronation 105* R 105* supination, 90* ext Wrist: B WFL MP: L 45* R 35* IP: L 55* L 68* MP: Flexion L 55*, 70*, 70*, 65* R 50*, 50*, 50*, 30* PIP: Flexion L 90*, 85*, 85*, 82* R 95* ,75*,90*,80* DIP: Flexion L 65*,65*, 45*, 51*, R 48*, 60*, 45*, 48* ROM Comments: R 5th digit was broken as a baby and is contracted. - Strength Shoulder: B UE strength Fair+ Elbow: B elbow strength Fair+ Assistant Department Manager: L 42# R 38# Lateral Pinch: L 10# R 12# Tripod Pinch: L 10#, R 8# Tip-to-Tip Pinch: L 6# R 4# Strength Comments: Pt is R hand dominant. - Edema Other: no swelling was observed - Sensation Thumb: B thumbs 3.22 Index: All digits 2.83 Middle: All digits 2.83 Ring: B 2.83 Little: B 2.83 Sensation Comments: had nerve conduction test a couple of days ago, pt. unsure of results. Pt. was able to discriminate items in hand without visual assist. Pt. had normal sensation per Austin-Sophie monofilament assessment. - Transfers Transfers: Pt. independent with functional mobility. - In-Hand Manipulation Palm to Finger Translation: Normal - Right, Normal - Left - Quick DASH-Disab of Arm,Shoulder& Hand Quick DASH Score: 61.6650 - Goals Goal:: Pt. will report improved BUE strength to pepper picker ice tea pitcher from fridge without increasing pain in hands by nv. Pt. will improve B hand candy maker helper strength from L 42# R 38# to L 50# & R 45# to participate in IADL tasks (fishing, bow hunting) by nv. Pt. will understand and report proper use of gym equipment for indep use at nv. Goal:: Increase MP Flexion by 10* (from L 55*, 70*, 70*, 65* R 50*, 50*, 50*, 30* to L 65*, 80*,80*,75* R 60*,60*, 60*, 40*) to perform grasp and release of common objects used for ADL's & IADL's by nv. Goal:: Pt. will report use of 3 compensatory tech and adaptations to everyday tasks for good body mechanics to reduce times in pain by nv. - Rehabilitation General Assessment: Pt. referred for Bilateral hand pain, hand muscle weakness, intrinsic muscle tightness, contracture of finger. Pt. reported having Low back pain for 6-7 years, and heart surgery. Because of pain in BUE's pt. has had difficulty with ADL and IADL tasks and would benefit from skilled OT services 2x a week for 4 weeks to improve strength and endurance to participate in his daily tasks. Rehabilitation Potential: Fair - Anticipated Interventions A/AAROM/PROM, Strengthening, Joint Protection/Energy Conservation, Ergonomic Education, Fine Motor Coord/Neftali, ADL Training, Education re assistive Equipment, Home Program Other Interventions: pt. stating he has had hand splints and would wear them for a couple of months but felt like they were not helping and discontinued. - Visit Plan Frequency: 2x /Week Duration: 4 Weeks General Plan: Pt. reporting he feels like he has lost a lot of muscle strength after heart surgery. Has not trialed heat packs, ice or over the counter pain creams. TEXT: Thank you for the opportunity to evaluate your patient. For Medicare and Medicare HMO plans, please review the plan of care and approve it. It will need to be FAXED BACK to us at [phone] for Medicare purposes. Please let me know if there are questions or concerns regarding this plan of care. Physician Signature: Date:
--- NOTE | 2022-03-07 13:25 | HP.OT.NRP ---
SARAH MAE was seen in my office for initial evaluation on 09/12/21. The following Plan of Care was established for this patient: Initial Frequency: 2x /Week Initial Duration: 4 Weeks Plan: cont POC Anticipated Interventions: A/AAROM/PROM, Strengthening, Joint Protection/Energy Conservation, Ergonomic Education, Fine Motor Coord/Neftali, ADL Training, Education re assistive Equipment, Home Program Other Interventions: pt. stating he has had hand splints and would wear them for a couple of months but felt like they were not helping and discontinued. This patient was last seen in our office 09/15/21. Pertinent comments regarding their Occupational therapy will appear below: pt was seen for 2 visits last scheduled apt pt cancelled due to having poison godfrey- pt did not reschedule apt and due to time lapse in services pt d/c. At this point I will be discontinuing this patient from occupational therapy. I would be happy to see this patient again in the future if found appropriate by the physician. Thank you! Lupe Mullen, OTR/L, CHT
== END 2021-09-15 19:00 | disposition home or self-care (01) ==
LOC: OT 09:30
PROVIDERS: PCP Internal Medicine
DX: M79.641 Pain in right hand (principal); M79.642 Pain in left hand; M62.81 Muscle weakness (generalized); M62.40 Contracture of muscle, unspecified site; M24.549 Contracture, unspecified hand
CPT/HCPCS: 97110; 97165; 97530

== ENCOUNTER 2022-05-03 17:06 | Emergency (ER) | payer BC, MEDICAID, SELFPAY ==
[2022-05-03 17:07] VITALS: BP 123/84; PULSE 88; RESP 18; TEMP 36.4; O2SAT 98; BMI 30.2
[2022-05-03 18:52] VITALS: BP 125/89; PULSE 60; RESP 18; O2SAT 98
[2022-05-03] MEDS: HYDROcodone Bitartrate/Apap 5/325 Tablet PO (20:13)
[2022-05-03] MEDS: Cephalexin 250 MG Capsule 500 MG PO (20:13)
--- NOTE | 2022-05-03 20:15 | EX.ED.DYSGE1 ---
HPI History of Present Illness Chief Complaint: Wound Informant: patient Narrative Narrative: Patient is a 46-year-old male with extensive cardiac history presenting for wound check. Patient had a loop recorder removed approximately 10 days ago. This was performed at [facility] by Dr. Hess. It was removed because the battery was . It initially been placed [address] Villar[address]. Over the weekend his Steri-Strips were pulled off and he had increased bleeding. Since then he has had increased pain and is having drainage. He states at 1 point there was some purulent looking drainage. He is concerned about infection as well as pain so he came in. He is taken Tylenol with no relief of the pain. No report of any fevers, chills or any other systemic symptoms. No deeper chest pain. No other complaints at this time. Patient denies any history of staph infections or MRSA. [facility] Medical History Anemia Asymmetric septal hypertrophy Chest pain Chronic back pain Claudication Hypersomnia, unspecified Hypertriglyceridemia Hypertrophic obstructive cardiomyopathy (HOCM) Left bundle branch block Marijuana dependence Nonrheumatic mitral (valve) insufficiency Palpitations Pancreatitis Type I glycogen storage disease Vitamin D deficiency Home Medications aspirin 81 mg chewable tablet 81 mg PO DAILY 12/10/16 [History Last Taken 03/05/17] omega-3 acid ethyl esters 1 gram capsule 2 cap PO BID 03/02/17 [History Last Taken Unknown] multivitamin with folic acid 400 mcg tablet 1 tab PO DAILY 07/30/17 [History Last Taken Unknown] paroxetine HCl 20 mg tablet (Paxil) 20 mg PO DAILY 03/31/20 [History Last Taken Unknown] ergocalciferol (vitamin D2) 1,250 mcg (50,000 unit) capsule 50,000 unit PO QWEEK 08/05/20 [History Last Taken Unknown] gabapentin 100 mg capsule 100 mg PO QHS PRN Pain 08/05/20 [History Last Taken Unknown] meloxicam 7.5 mg tablet 7.5 mg PO DAILY 08/05/20 [History Last Taken Unknown] verapamil 180 mg 24 hr capsule,extended release 180 mg PO DAILY #90 caps 08/05/20 [Rx Last Taken Unknown] icosapent ethyl 1 gram capsule (Vascepa) 2 g PO BID #360 caps 10/15/20 [Rx Last Taken Unknown] fenofibrate micronized 200 mg capsule 200 mg PO DAILY #90 caps 08/15/21 [Rx Last Taken Unknown] cephalexin 500 mg capsule 500 mg PO Q6 #28 caps 05/03/22 [Rx Last Taken Unknown] hydrocodone-acetaminophen 5-325mg 5mg-325mg 1 tab PO Q8H PRN pain 3 days #9 tabs 05/03/22 [Rx Last Taken Unknown] pravastatin 20 mg tablet 20 mg PO DAILY 05/03/22 [History Last Taken Unknown] Allergy/AdvReac Type Severity Reaction Status Date / Time NSAIDS (Non-Steroidal AdvReac Severe GI BLEEDS Verified 05/03/22 17:07 Anti-Inflamma (is able to take 81mg asa though) nitroglycerin AdvReac Hypotension/feeling Verified 05/03/22 17:07 poor Family History Mother CAD (coronary artery disease) Father CAD (coronary artery disease) Kidney disease Sister Hypertension Glycogen storage disease Sister Hypertension Sister Hypertension Surgical History H/O mitral valve repair (07/18/17) History of left heart catheterization (03/05/17) History of liver biopsy History of loop recorder (07/22/18) History of open reduction and internal fixation (ORIF) procedure History of ventricular septal myectomy (07/18/17) Social History Smoking Status: Current every day smoker tobacco type: cigarettes alcohol intake: never substance use type: marijuana caffeine: No ROS ROS ED Constitutional Constitutional ED: Denies chills or fever(s) Eyes Eyes: Denies change in vision ENT ENT ED: Denies rhinorrhea or sore throat Cardiovascular Cardiovascular: Denies chest pain or palpitations Respiratory/Chest Respiratory/Chest: Denies cough or dyspnea Gastrointestinal Gastrointestinal: Denies nausea or vomiting Musculoskeletal Musculoskeletal: Denies arthralgias or myalgias Integumentary Reports other Details: wound to chest wall Psychiatric Psychiatric: Denies anxiety or depression Hematologic/Lymphatic Hematologic/Lymphatic: Denies easy bleeding EXAM Physical Exam Const Vital Signs: 05/03/22 17:07 05/03/22 18:52 Temperature 97.6 F L Temperature Source Temporal Pulse Rate 88 60 Respiratory Rate 18 18 Blood Pressure 123/84 H 125/89 H Blood Pressure Mean 97 101 Pulse Ox 98 98 Oxygen Delivery Method Room Air Room Air Positive well nourished and well developed General Appearance ED: well developed and NAD HEENT Reports moist mucous membranes Eyes PERRL and EOMs intact bilaterally Neck supple and no JVD Chest Wall palpation of chest normal Chest Narrative: Patient has a 1 cm surgical wound on the anterior chest wall just left of the sternum. There is some serosanguineous drainage as well as some granulation tissue present. No surrounding erythema. Is tender to palpation. There is no associated fluctuance. Wound does not probe down. Resp normal respiratory effort and clear to auscultation bilaterally Cardio regular rate and regular rhythm GI normal to inspection, nondistended, normoactive bowel sounds Extremity normal to inspection Neuro oriented x3 Sensorium / Orientation: alert Motor Exam: Negative for general weakness Psych mental status grossly normal Skin Skin Narrative: Small surgical wound of anterior chest wall. See chest section of physical exam MDM MDM MDM Narrative Medical decision making narrative: Patient evaluated for increased pain and drainage from wound where he had a loop recorder removed on his chest wall. I spoke with electrophysiology on-call for his surgeon, Dr. Billings. He will low suspicion for infection of the procedure but was amenable to starting him on some antibiotics. Patient given [place] for pain control and first dose of Keflex in the ER. We discussed how this could just be irritation and not actually infection but given his increased pain 7 days post procedure will cover for infection. Patient agreeable this plan of care. Discharged home in stable condition. Discharge Plan Triage Chief Complaint: Wound ED Provider: Lisa Dooley Dx/Rx/DC Orders Clinical Impression: Open wound of chest wall, History of loop recorder Instructions: ED Post Op Wound Check, General Prescriptions: New cephalexin 500 mg capsule 500 mg PO Q6 Qty: 28 0RF hydrocodone-acetaminophen 5-325 mg tablet 1 tab PO Q8H PRN (Reason: pain) 3 Days Qty: 9 0RF No Action meloxicam 7.5 mg tablet 7.5 mg PO DAILY gabapentin 100 mg capsule 100 mg PO QHS PRN (Reason: Pain) verapamil 180 mg capsule,ext rel. pellets 24 hr 180 mg PO DAILY Qty: 90 3RF aspirin 81 MG tablet,chewable 81 mg PO DAILY omega-3 acid ethyl esters 1 GM capsule 2 cap PO BID ergocalciferol (vitamin D2) 1,250 mcg (50,000 unit) capsule 50,000 unit PO QWEEK multivitamin with folic acid 1 TABLET tablet 1 tab PO DAILY pravastatin 20 mg tablet 20 mg PO DAILY Label Comments: TAKE 1 TABLET BY MOUTH EVERYDAY AT BEDTIME paroxetine HCl [Paxil] 20 mg tablet 20 mg PO DAILY icosapent ethyl [Vascepa] 1 gram capsule 2 g PO BID Qty: 360 3RF fenofibrate micronized 200 mg capsule 200 mg PO DAILY Qty: 90 3RF Primary Care Provider: Eliane Redmond Referrals: Eliane Redmond MD [Primary Care Provider] - Activity Restrictions/Additional Instructions: Is possible there is an infection giving her increased pain however it is possible there is just localized irritation. As we discussed keep the wound covered as it drains and apply either petroleum jelly or bacitracin ointment to it. Return if your symptoms worsen or progress. Disposition Disposition: Home, Self Care
[2022-05-03 20:33] VITALS: BP 126/61; PULSE 80; RESP 16
== END 2022-05-03 20:33 | disposition home or self-care (01) ==
PROVIDERS: Emergency Provider Emergency Medicine; PCP Internal Medicine; Visit Provider Emergency Medicine
DX: S21.109A Unspecified open wound of unspecified front wall of thorax without penetration into thoracic cavity, initial encounter (principal); M54.9 Dorsalgia, unspecified; F12.90 Cannabis use, unspecified, uncomplicated; G89.29 Other chronic pain; F17.210 Nicotine dependence, cigarettes, uncomplicated
CPT/HCPCS: 99284

== ENCOUNTER 2022-10-02 19:00 | Emergency (ER) | payer MEDICAID, SELFPAY ==
[2022-10-02 19:01] VITALS: BP 164/142; PULSE 104; RESP 22; TEMP 36.6; O2SAT 98; BMI 31.3
--- NOTE | 2022-10-02 19:25 | RAD_ITS ---
STUDY: X-RAY CHEST REASON FOR EXAM: Male, 46 years old. chest pain TECHNIQUE: Single AP portable view of the chest. COMPARISON: 03/30/2018 FINDINGS: An electronic device overlies the lateral left hemithorax media assistant with quality assurance monitor final. The lungs are clear and expanded. There is no demonstrated pleural abnormality. Normal size heart. Previous median sternotomy. Normal mediastinum and alphonse. Normal visualized pulmonary arteries. Normal visualized aortic arch and descending thoracic aorta. Normal visualized thoracic spine. Normal visualized ribs, clavicles, and shoulders. There is no demonstrated abnormality of the visualized soft tissue structures of the upper abdomen. RAD/Chest 1 View (Portable) IMPRESSION: No definite acute or significant abnormality seen. Electronically Signed: Amol White MD at 19:54 EDT ,
--- NOTE | 2022-10-02 19:29 | EDS_ITS ---
HPI History of Present Illness Chief Complaint: Chest Pain Narrative Narrative: 46-year-old male past medical history of previous heart problems presents with intermittent chest pain that he has had over the last month. He is currently being worked up for it. This afternoon, they put a Holter monitor on him, and he states he began feeling lightheaded and not right. He usually has chest pain that radiates to his left jaw and down his left arm. Sometimes he gets left leg pain. He denies any headache. His main concern is that while he is on a Holter monitor, that there is something wrong with his heart. He denies any nausea or vomiting. No diaphoresis. No real exertional component to this. [facility] Medical History Anemia Asymmetric septal hypertrophy Chest pain Chronic back pain Claudication Hypersomnia, unspecified Hypertriglyceridemia Hypertrophic obstructive cardiomyopathy (HOCM) Left bundle branch block Marijuana dependence Nonrheumatic mitral (valve) insufficiency Palpitations Pancreatitis Type I glycogen storage disease Vitamin D deficiency Home Medications aspirin 81 mg chewable tablet 81 mg PO DAILY 12/10/16 [History Last Taken 03/05/17] omega-3 acid ethyl esters 1 gram capsule 2 cap PO BID 03/02/17 [History Last Taken Unknown] multivitamin with folic acid 400 mcg tablet 1 tab PO DAILY 07/30/17 [History Last Taken Unknown] paroxetine HCl 20 mg tablet (Paxil) 20 mg PO DAILY 03/31/20 [History Last Taken Unknown] ergocalciferol (vitamin D2) 1,250 mcg (50,000 unit) capsule 50,000 unit PO QWEEK 08/05/20 [History Last Taken Unknown] gabapentin 100 mg capsule 100 mg PO QHS PRN Pain 08/05/20 [History Last Taken Unknown] meloxicam 7.5 mg tablet 7.5 mg PO DAILY 08/05/20 [History Last Taken Unknown] verapamil 180 mg 24 hr capsule,extended release 180 mg PO DAILY #90 caps 08/05/20 [Rx Last Taken Unknown] icosapent ethyl 1 gram capsule (Vascepa) 2 g PO BID #360 caps 10/15/20 [Rx Last Taken Unknown] fenofibrate micronized 200 mg capsule 200 mg PO DAILY #90 caps 08/15/21 [Rx Last Taken Unknown] cephalexin 500 mg capsule 500 mg PO Q6 #28 caps 05/03/22 [Rx Last Taken Unknown] hydrocodone-acetaminophen 5-325mg 5mg-325mg 1 tab PO Q8H PRN pain 3 days #9 tabs 05/03/22 [Rx Last Taken Unknown] pravastatin 20 mg tablet 20 mg PO DAILY 05/03/22 [History Last Taken Unknown] Allergy/AdvReac Type Severity Reaction Status Date / Time NSAIDS (Non-Steroidal AdvReac Severe GI BLEEDS Verified 05/03/22 17:07 Anti-Inflamma (is able to take 81mg asa though) nitroglycerin AdvReac Hypotension/feeling Verified 05/03/22 17:07 poor Family History Mother CAD (coronary artery disease) Father CAD (coronary artery disease) Kidney disease Sister Hypertension Glycogen storage disease Sister Hypertension Sister Hypertension Surgical History H/O mitral valve repair (07/18/17) History of left heart catheterization (03/05/17) History of liver biopsy History of loop recorder (07/22/18) History of open reduction and internal fixation (ORIF) procedure History of ventricular septal myectomy (07/18/17) Social History Smoking Status: Current every day smoker tobacco type: cigarettes alcohol intake: never substance use type: marijuana caffeine: No ROS ROS ED ROS Narrative Constitutional: No fever, no chills. HEENT: No sore throat. No neck pain. No loss of vision. No rhinorrhea. Cardiovascular: Positive chest pain, radiates to left jaw and down left arm. No palpitations. No pedal edema. Respiratory: No cough, no shortness of breath. Abdominal: No abdominal pain. No nausea. No vomiting. Genitourinary: No dysuria. No hematuria. Musculoskeletal: No myalgias. No arthralgias. Occasional left leg pain. Neurologic: No headaches. No dizziness. No lightheadedness. Skin: No rash. No change in color. Psychiatric: No depression. No anxiety. EXAM Physical Exam Narrative Exam Narrative: Afebrile. Vital signs noted. HEENT: Normocephalic. Atraumatic. PERRL, EOMI. Neck soft and supple. No point tenderness or step off. Cardiovascular: Regular rate and rhythm with intermittent tachycardia. Respiratory: No tachypnea. Lungs clear to auscultation bilaterally. Gastrointestinal: Abdomen soft, nontender, with normoactive bowel sounds. No rebound or guarding. Neurological: Awake. Alert. Nonfocal, nonlateralizing. Skin: No rash. Normal color. No pallor. Musculoskeletal: No pedal edema. Full range of motion extremities. Const Vital Signs: 10/02/22 19:01 10/02/22 19:03 10/02/22 19:50 Temperature 97.8 F Temperature Source Temporal Pulse Rate 104 H Respiratory Rate 22 H Respiratory Effort Normal Blood Pressure 164/142 H Blood Pressure Mean 149 Pulse Ox 98 97 Oxygen Delivery Method Room Air Room Air 10/02/22 20:55 Temperature Temperature Source Pulse Rate 71 Respiratory Rate 16 Respiratory Effort Blood Pressure 112/76 Blood Pressure Mean 88 Pulse Ox 97 Oxygen Delivery Method Room Air MDM MDM MDM Narrative Medical decision making narrative: Comprehensive work-up was pursued. EKG was obtained which demonstrates normal sinus rhythm at 87 bpm with a left bundle branch block but no acute ST changes. No STEMI. I do not feel that a CT of the brain is indicated. His neurological exam is nonfocal, and he has had problems with the left leg pain for over a month. I reviewed his prior records. He does have extensive heart history including mitral valve repair, reported hocum, hypertriglyceridemia. I will obtain serial troponins, chest x-ray, and basic laboratory work. I reviewed the patient's laboratory work, he has a normal white count of 8.7, hemoglobin normal at 14.0, platelet count normal at 305. Potassium is slightly low at 3.4 which was replaced orally. He has a BUN of 22 and a creatinine of 1.04, glucose is appropriately elevated at 115 with a normal anion gap of 10. High-sensitivity troponin is 10. Patient states he had chest pain around 1030 this morning which is well over a 6-hour troponin. I had ordered a second troponin, but he and his declined, and I feel that this is acceptable. I did interpret his EKG which shows normal sinus rhythm with a left bundle branch block at [address] changes. No STEMI. I interpreted his chest x- ray as no acute process. I reviewed the radiology report which confirms this. At this point in time, there may be some anxiety component to this because his states that he started getting chest pain after he was told by his primary care provider that he was going to be set up for a test to check for blockages of his coronary arteries. I do feel that the 6-hour troponin helps rule out this as a cause of his chest pain and it has been ongoing for approximately a month. I feel he be discharged safely home with follow-up. Return instructions to the emergency department were reviewed. Disposition is discharged home in stable condition. History & Record Review Discussion w/independent historian: Patient and Significant other Additional record(s) reviewed:: Prior ED visit Lab Data Attestation: I reviewed the patient's lab results. Labs: Laboratory Results - last 24 hr 10/02/22 10/02/22 19:24 19:24 WBC 8.7 RBC 4.66 Hgb 14.0 Hct 41.8 MCV 89.7 MCH 30.0 MCHC 33.5 RDW Std Deviation 46.7 H RDW Coeff of Chiqui 14.2 Plt Count 305 MPV 10.8 Immature Gran % (Auto) 0.100 Neut % (Auto) 56.6 Lymph % (Auto) 34.5 Evans % (Auto) 8.2 Eos % (Auto) 0.0 Baso % (Auto) 0.6 Absolute Neuts (auto) 4.9 Absolute Lymphs (auto) 3.00 Nucleated RBC % 0 Sodium 137 Potassium 3.4 L Chloride 106 Carbon Dioxide 21.0 Anion Gap 10 BUN 22 H Creatinine 1.04 Estim Creat Clear Calc 62.77 Est GFR (MDRD) Af Amer 99 Est GFR (MDRD) Non-Af 81 BUN/Creatinine Ratio 21.2 H Glucose 115 H Calcium 8.6 Troponin I High Sens 10 Radiography Diagnostic Testing: Clinical Impression(s) from Imaging Studies Chest X-Ray 10/02/22 19:25 IMPRESSION: No definite acute or significant abnormality seen. Electronically Signed: Amol White MD at 19:54 EDT , Discharge Plan Triage Chief Complaint: Chest Pain ED Provider: Deni Yin Dx/Rx/DC Orders Clinical Impression: Chest pain, Hypokalemia Instructions: ED Chest Pain, Uncertain Cause, ED Hypokalemia Prescriptions: No Action meloxicam 7.5 mg tablet 7.5 mg PO DAILY gabapentin 100 mg capsule 100 mg PO QHS PRN (Reason: Pain) verapamil 180 mg capsule,ext rel. pellets 24 hr 180 mg PO DAILY Qty: 90 3RF aspirin 81 MG tablet,chewable 81 mg PO DAILY omega-3 acid ethyl esters 1 GM capsule 2 cap PO BID ergocalciferol (vitamin D2) 1,250 mcg (50,000 unit) capsule 50,000 unit PO QWEEK multivitamin with folic acid 1 TABLET tablet 1 tab PO DAILY pravastatin 20 mg tablet 20 mg PO DAILY Label Comments: TAKE 1 TABLET BY MOUTH EVERYDAY AT BEDTIME cephalexin 500 mg capsule 500 mg PO Q6 Qty: 28 0RF hydrocodone-acetaminophen 5-325 mg tablet 1 tab PO Q8H PRN (Reason: pain) 3 Days Qty: 9 0RF paroxetine HCl [Paxil] 20 mg tablet 20 mg PO DAILY icosapent ethyl [Vascepa] 1 gram capsule 2 g PO BID Qty: 360 3RF fenofibrate micronized 200 mg capsule 200 mg PO DAILY Qty: 90 3RF Primary Care Provider: Eliane Redmond Referrals: Eliane Redmond MD [Primary Care Provider] - Activity Restrictions/Additional Instructions: Follow-up with your analog device designer in the next 2 to 3 days. Return with worsening symptoms. Disposition Disposition: Home, Self Care
[2022-10-02 19:32] LABS: Absolute Neutrophil Count 4.9 X10^3/uL (2.0-7.7); Basophil# 0.05 X10^3/uL; Basophil% 0.6 % (0-1); Hematocrit 41.8 % (40-54); Lymphocyte % 34.5 % (19-41); Mean Corp Hgb Conc 33.5 g/dL (32-36); Mean Corpuscular Volume 89.7 fL (80-94); Mean Platelet Vol. 10.8 fl (6.2-12.0); Monocyte# 0.71 X10^3/uL; Monocyte% 8.2 % (0-10); NRBC Flagged by Analyzer 0 % (0-5); Neutrophil # 4.93 X10^3/uL (2.7-7.7); Neutrophil % 56.6 % (47-70); Platelet Count 305 K/mm3 (150-450); RBC Distribution Width CV 14.2 % (11.6-14.6); RBC Distribution Width SD 46.7 fl (35.1-43.9); Red Blood Count 4.66 M/mm3 (4.6-6.2); White Blood Count 8.7 K/mm3 (4.4-11.0)
[2022-10-02 19:50] VITALS: O2SAT 97
[2022-10-02 19:52] LABS: Anion Gap 10 (5-15); BUN 22 mg/dL (7-18); BUN/Creat Ratio 21.2 RATIO (10-20); Calcium,Total 8.6 mg/dL (8.5-10.1); Chloride 106 mmol/L (98-107); Creatinine, Serum 1.04 mg/dL (0.70-1.30); EST Glomerular Filtration Rate 81 mL/min (>60); Est Glom Filt Rate - Afr Amer 99 mL/min (>60); Estimated Creatinine Clearance 62.77 ml/min; Glucose 115 mg/dL (74-106); Potassium 3.4 mmol/L (3.5-5.1); Sodium Level 137 mmol/L (136-145); Troponin-I HS (w/2H Reflex) 10 pg/mL (3.0-78.0)
[2022-10-02 20:55] VITALS: BP 112/76; PULSE 71; RESP 16; O2SAT 97
[2022-10-02 21:28] LABS: Reflex Troponin-HS? (from REC) Y
[2022-10-02] MEDS: Potassium Chloride Oral Tablet 20 MEQ 40 MEQ PO (21:40)
[2022-10-02 21:41] VITALS: BP 124/76; PULSE 77; RESP 15; O2SAT 98
== END 2022-10-02 21:57 | disposition home or self-care (01) ==
PROVIDERS: Emergency Provider Emergency Medicine; PCP Internal Medicine; Visit Provider Emergency Medicine
DX: R07.9 Chest pain, unspecified (principal); E87.6 Hypokalemia; F12.90 Cannabis use, unspecified, uncomplicated; F17.210 Nicotine dependence, cigarettes, uncomplicated; Z79.82 Long term (current) use of aspirin; Z79.899 Other long term (current) drug therapy
CPT/HCPCS: 71045; 80048; 84484; 85025; 93005; 99285; A4216

== ENCOUNTER 2023-12-19 17:10 | Emergency (ER) | payer MEDICARE, BC, SELFPAY ==
[2023-12-19 17:14] VITALS: BP 134/87; PULSE 79; RESP 18; TEMP 36.1; O2SAT 97; BMI 29.8
--- NOTE | 2023-12-19 17:38 | EKG12_ITS ---
Test Reason : CP Blood Pressure : / mmHG Vent. Rate : 070 BPM Atrial Rate : 070 BPM P-R Int : 176 ms QRS Dur : 142 ms QT Int : 422 ms P-R-T Axes : 039 -08 145 degrees QTc Int : 455 ms Normal sinus rhythm Left bundle branch block Abnormal ECG Confirmed by BRODERICK GONZALES, SHANON ([id number]), assistant editor ROMARIO OQEUNDO ([id number]) on 12/20/2023 1:01:03 PM Referred By: JOSEFINA/ALONSO Confirmed By:SHANON VILLAFANA MD
[2023-12-19 18:02] LABS: Absolute Lymphocyte Count 2.81 X10^3/uL (0.83-4.51); Absolute Neutrophil Count 2.7 X10^3/uL (2.0-7.7); Basophil# 0.05 X10^3/uL; Basophil% 0.8 % (0-1); Eosinophil# 0.12 X10^3/uL; Eosinophils% 1.9 % (0-5); Hematocrit 37.9 % (40-54); Hemoglobin 12.9 g/dL (13.0-16.5); Lymphocyte # 2.81 X10^3/ul (0.83-4.51); Lymphocyte % 45.1 % (19-41); Mean Corpuscular Hgb 29.7 pg (27.0-32.0); Mean Corpuscular Volume 87.1 fL (80-94); Mean Platelet Vol. 11.1 fl (6.2-12.0); Monocyte# 0.56 X10^3/uL; NRBC Flagged by Analyzer 0 % (0-5); Neutrophil # 2.67 X10^3/uL (2.7-7.7); Neutrophil % 42.9 % (47-70); POSITIVE COUNT YES; Platelet Count 256 K/mm3 (150-450); RBC Distribution Width CV 13.9 % (11.6-14.6); RBC Distribution Width SD 44.9 fl (35.1-43.9); Red Blood Count 4.35 M/mm3 (4.6-6.2); White Blood Count 6.2 K/mm3 (4.4-11.0)
--- NOTE | 2023-12-19 18:05 | RAD_ITS ---
STUDY: X-RAY CHEST REASON FOR EXAM: Male, 48 years old. Chest pain TECHNIQUE: Single AP portable view of the chest. COMPARISON: October 02, 2022 FINDINGS: There are monitoring devices. The lungs are clear and expanded. There is no demonstrated pleural abnormality. Sternal cerclage wires are present from a prior sternotomy. Normal mediastinum and alphonse. Normal visualized pulmonary arteries. Normal visualized aortic arch and descending thoracic aorta. Normal visualized thoracic spine. Normal visualized ribs, clavicles, and shoulders. There is no demonstrated abnormality of the visualized soft tissue structures of the upper abdomen. RAD/Chest 1 View (Portable) IMPRESSION: No acute cardiopulmonary disease. Electronically Signed: Chau Maria MD at 18:28 EDT ,
[2023-12-19 18:25] LABS: Anion Gap 7 (5-15); BUN 14 mg/dL (7-18); BUN/Creat Ratio 20.5 RATIO (10-20); Calcium,Total 8.7 mg/dL (8.5-10.1); Chloride 106 mmol/L (98-107); Creatinine, Serum 0.68 mg/dL (0.70-1.30); EST Glomerular Filtration Rate 132 mL/min (>60); Est Glom Filt Rate - Afr Amer 159 mL/min (>60); Estimated Creatinine Clearance 108.47 ml/min; Glucose 114 mg/dL (74-106); Potassium 3.9 mmol/L (3.5-5.1); Sodium Level 137 mmol/L (136-145); Troponin-I HS (w/2H Reflex) 10 pg/mL (3.0-78.0)
[2023-12-19] MEDS: Ipratropium/Albuterol Sulfate 3 ML AMPUL.NEB INHALATION (18:43)
[2023-12-19] MEDS: MethylPREDNISolone 125 MG/2 ML Vial IV (18:43)
[2023-12-19] MEDS: Albuterol 2.5 MG/3 ML VIAL.NEB. INHALATION (18:43)
[2023-12-19 19:00] VITALS: PULSE 75; RESP 12
[2023-12-19 19:13] VITALS: BP 108/67; PULSE 76; RESP 20; O2SAT 95
[2023-12-19 19:56] LABS: Reflex Troponin-HS? (from REC) Y
--- NOTE | 2023-12-19 20:21 | EDS_ITS ---
HPI History of Present Illness Chief Complaint: Chest Pain Narrative Narrative: 48-year-old male presenting with cough, congestion x 3 days. He states his chest feels tight. Denies fever or chills. He states he has been taking Mucinex to loosen up his chest. He states this is not working. No known vomiting. Patient is a smoker. [facility] Medical History Chest pain Hypersomnia, unspecified Palpitations Claudication Marijuana dependence Chronic back pain Hypertriglyceridemia Vitamin D deficiency Left bundle branch block Nonrheumatic mitral (valve) insufficiency Pancreatitis Hypertrophic obstructive cardiomyopathy (HOCM) Asymmetric septal hypertrophy Anemia Type I glycogen storage disease Home Medications ?Medication ?Instructions ?Recorded ?Last Taken ?Type aspirin 81 mg chewable tablet 81 mg PO DAILY 12/10/16 03/05/17 History omega-3 acid ethyl esters 1 gram 2 cap PO BID 03/02/17 Unknown History capsule multivitamin with folic acid 400 1 tab PO DAILY 07/30/17 Unknown History mcg tablet paroxetine HCl 20 mg tablet (Paxil) 20 mg PO DAILY 03/31/20 Unknown History ergocalciferol (vitamin D2) 1,250 50,000 unit PO QWEEK 08/05/20 Unknown History mcg (50,000 unit) capsule gabapentin 100 mg capsule 100 mg PO QHS PRN Pain 08/05/20 Unknown History meloxicam 7.5 mg tablet 7.5 mg PO DAILY 08/05/20 Unknown History icosapent ethyl 1 gram capsule 2 g (2 x 1 gram) PO BID #360 caps 10/15/20 Unknown Rx (Vascepa) fenofibrate micronized 200 mg 200 mg PO DAILY #90 caps 08/15/21 Unknown Rx capsule cephalexin 500 mg capsule 500 mg PO Q6 #28 caps 05/03/22 Unknown Rx hydrocodone-acetaminophen 5-325mg 1 tab PO Q8H PRN pain 3 days #9 05/03/22 Unknown Rx 5mg-325mg tabs pravastatin 20 mg tablet 20 mg PO DAILY 05/03/22 Unknown History verapamil 180 mg 24 hr 180 mg PO DAILY #90 caps 11/20/22 Unknown Rx capsule,extended release prednisone 50 mg tablet 50 mg PO DAILY #5 tabs 12/19/23 Unknown Rx Allergy/AdvReac Type Severity Reaction Status Date / Time NSAIDS (Non-Steroidal AdvReac Severe GI BLEEDS Verified 12/19/23 17:14 Anti-Inflamma (is able to take 81mg asa though) nitroglycerin AdvReac Hypotension/feeling Verified 12/19/23 17:14 poor Family History Mother CAD (coronary artery disease) Father CAD (coronary artery disease) Kidney disease Sister Hypertension Glycogen storage disease Sister Hypertension Sister Hypertension Surgical History History of loop recorder (07/22/18) History of left heart catheterization (03/05/17) H/O mitral valve repair (07/18/17) History of ventricular septal myectomy (07/18/17) History of open reduction and internal fixation (ORIF) procedure History of liver biopsy Social History Smoking Status: Current every day smoker tobacco type: cigarettes alcohol intake: never substance use type: marijuana caffeine: No ROS ROS ED Constitutional Constitutional ED: Denies chills, fever(s) or sweats Eyes Eyes: Denies blurry vision or change in vision ENT ENT ED: Denies ear pain or sore throat Cardiovascular Cardiovascular: Reports as per HPI; Denies chest pain, palpitations or racing heartbeat Respiratory/Chest Respiratory/Chest: Reports cough; Denies dyspnea or sputum Gastrointestinal Gastrointestinal: Denies abdominal pain, constipation, diarrhea, nausea or vomiting Genitourinary Genitourinary ED: Denies dysuria, hematuria or urinary frequency Musculoskeletal Musculoskeletal: Denies arthralgias, myalgias or neck pain Integumentary Denies abscess, Abrasions or rash Neurologic Neurologic: Denies headache(s), paresthesias or weakness Psychiatric Psychiatric: Denies anxiety, depression, suicidal ideation or suicidal thoughts Endocrine Endocrinology: Denies polydipsia or polyuria EXAM Physical Exam Const Vital Signs: 12/19/23 17:14 12/19/23 17:38 12/19/23 19:00 Temperature 96.9 F L Temperature Source Temporal Pulse Rate 79 75 Respiratory Rate 18 12 Respiratory Pattern Normal Blood Pressure 134/87 H Blood Pressure Mean 102 Pulse Ox 97 Oxygen Delivery Method Room Air Room Air 12/19/23 19:13 Temperature Temperature Source Pulse Rate 76 Respiratory Rate 20 H Respiratory Pattern Blood Pressure 108/67 Blood Pressure Mean 80 Pulse Ox 95 Oxygen Delivery Method Positive well nourished General Appearance ED: NAD; Negative for pallor HEENT Reports moist mucous membranes normocephalic Eyes PERRL and EOMs intact bilaterally Chest Wall inspection of chest normal Resp normal respiratory effort Auscultation: wheezes expiratory wheezes Cardio regular rate Rhythm: abnormal rhythm GI normal to inspection, nondistended, normoactive bowel sounds Neuro oriented x3 and CN's II-XII intact bilaterally Sensorium / Orientation: awake and alert Psych mental status grossly normal Skin no rashes or lesions noted General Skin Exam: Negative for jaundice or pallor MDM MDM MDM Narrative Medical decision making narrative: 40-year-old male presenting with chest tightness and a cough. He is wheezing on examination. Differential includes ACS, pneumonia, dehydration, anemia, electrolyte abnormalities, bronchitis. CBC will be obtained to assess white blood cell count, hemoglobin, platelets. BMP to assess renal function, electrolytes, glucose. High-sensitivity troponin and EKG to assess for ischemia/dysrhythmia. Chest x-ray to rule out pneumonia. CBC shows normal white blood cell count of 6.2. Hemoglobin 12.9. Platelets are normal at 256. Renal function and electrolytes within normal limits. High-sensitivity troponin is 10. EKG interpreted by myself shows a sinus rhythm at 70 bpm with left bundle branch block without change from previous EKG. Chest x-ray interpreted by myself shows no acute process. Radiologist interprets and agrees. On reevaluation the patient is feeling improved. I gave him an albuterol inhaler to take home with him. I went for him on a prednisone burst. Return precautions are discussed. Impression: 1. Chest pain 2. Bronchitis Lab Data Attestation: I reviewed the patient's lab results. Labs: Laboratory Results - last 24 hr 12/19/23 17:49 WBC 6.2 RBC 4.35 L Hgb 12.9 L Hct 37.9 L MCV 87.1 MCH 29.7 MCHC 34.0 RDW Std Deviation 44.9 H RDW Coeff of Chiqui 13.9 Plt Count 256 MPV 11.1 Immature Gran % (Auto) 0.300 Neut % (Auto) 42.9 L Lymph % (Auto) 45.1 H [place] % (Auto) 9.0 Eos % (Auto) 1.9 Baso % (Auto) 0.8 Absolute Neuts (auto) 2.7 Absolute Lymphs (auto) 2.81 Nucleated RBC % 0 Sodium 137 Potassium 3.9 Chloride 106 Carbon Dioxide 24.0 Anion Gap 7 BUN 14 Creatinine 0.68 L Estim Creat Clear Calc 108.47 Est GFR (MDRD) Af Amer 159 Est GFR (MDRD) Non-Af 132 BUN/Creatinine Ratio 20.5 H Glucose 114 H Calcium 8.7 Troponin I High Sens 10 Radiography Diagnostic Testing: Clinical Impression(s) from Imaging Studies Chest X-Ray 12/19/23 18:05 IMPRESSION: No acute cardiopulmonary disease. Electronically Signed: Chau Maria MD at 18:28 EDT , Discharge Plan Triage Chief Complaint: Chest Pain ED Provider: Ishan Alarcon Dx/Rx/DC Orders Instructions: ED Bronchitis with Wheezing (Adult) Prescriptions: New prednisone 50 mg tablet 50 mg PO DAILY Qty: 5 0RF No Action meloxicam 7.5 mg tablet 7.5 mg PO DAILY gabapentin 100 mg capsule 100 mg PO QHS PRN (Reason: Pain) aspirin 81 MG tablet,chewable 81 mg PO DAILY omega-3 acid ethyl esters 1 GM capsule 2 cap PO BID ergocalciferol (vitamin D2) 1,250 mcg (50,000 unit) capsule 50,000 unit PO QWEEK multivitamin with folic acid 1 TABLET tablet 1 tab PO DAILY pravastatin 20 mg tablet 20 mg PO DAILY Patient Comments: TAKE 1 TABLET BY MOUTH EVERYDAY AT BEDTIME cephalexin 500 mg capsule 500 mg PO Q6 Qty: 28 0RF hydrocodone-acetaminophen 5-325 mg tablet 1 tab PO Q8H PRN (Reason: pain) 3 Days Qty: 9 0RF paroxetine HCl [Paxil] 20 mg tablet 20 mg PO DAILY icosapent ethyl [Vascepa] 1 gram capsule 2 g PO BID Qty: 360 3RF fenofibrate micronized 200 mg capsule 200 mg PO DAILY Qty: 90 3RF verapamil 180 mg capsule,ext rel. pellets 24 hr 180 mg PO DAILY Qty: 90 3RF Primary Care Provider: Eliane Redmond Referrals: Ganta,Eliane, MD [Primary Care Provider] - Print Language: Kittitian Disposition Disposition: Home, Self Care
[2023-12-19] MEDS: Albuterol Sulfate 8 gm Inhaler (60 puffs) 2 PUFF INHALATION (20:29)
[2023-12-19 20:30] VITALS: BP 97/64; PULSE 80; RESP 15; TEMP 36.5; O2SAT 96
== END 2023-12-19 20:31 | disposition home or self-care (01) ==
PROVIDERS: Emergency Provider Student in an Organized Health Care Education/Training Program; PCP Internal Medicine; Visit Provider Student in an Organized Health Care Education/Training Program
DX: J40 Bronchitis, not specified as acute or chronic (principal); F17.210 Nicotine dependence, cigarettes, uncomplicated
CPT/HCPCS: 71045; 80048; 84484; 85025; 93005; 94640; 96374; 99283